=== PATIENT | female | born 1980 | race Caucasian/White ===

== ENCOUNTER → 2018-02-28 00:21 | Outpatient (CLI) | payer BC, SELFPAY ==
--- NOTE | 2018-02-28 09:18 | DI.REPORT_ITS ---
SYMPTOM/DIAGNOSIS: BILATERAL KIDNEY STONES, N20.0 RENAL ULTRASOUND: Comparison is 11/05/[address] scan 03/10/16 The left kidney measures 13.6 cm long. There is stable, persistent dilatation of the collecting system on the left. There do appear to be an echogenic foci in the left kidney consistent with nonobstructing stones. There is normal blood flow to the left kidney. The right kidney measures 12.5 cm long. There is again seen mild dilatation of the collecting system inferiorly. There are a few tiny echogenic foci consistent with nonobstructing stones. There is normal blood flow to the right kidney. No evidence of a solid renal mass is present. The pre-void urinary bladder volume is 120 cc. The bladder wall appeared smooth. Both ureteral jets were visualized. Post void urinary bladder volume is 15 cc. IMPRESSION: 1. Bilateral nephrolithiasis 2. Mild prominence of the collecting systems as described above. This is unchanged compared to prior examinations. If there is concern for obstruction a nuclear medicine renal evaluation may be considered.
== END ==
PROVIDERS: PCP Family Medicine; Visit Provider Urology
DX: N20.0 Calculus of kidney (principal); N28.89 Other specified disorders of kidney and ureter
CPT/HCPCS: 76770

== ENCOUNTER → 2018-03-06 08:33 | Outpatient (CLI) | payer BC, SELFPAY ==
[2018-03-06 10:04] LABS: Bilirubin Negative (Negative); Blood Moderate (Negative); Clarity Cloudy; Glucose Negative (Negative); Ketones Negative (Negative); Leukocyte Esterase Large (Negative); Nitrite Negative (Negative); Urobilinogen 0.2 EU/dL (Up TO 0.2); pH 5.5 (5-8)
[2018-03-06 10:19] LABS: RBC >50 (0-2); WBC >50 HPF (0-5)
[2018-03-06 10:20] LABS: C & S Indicated? Yes
== END ==
PROVIDERS: PCP Family Medicine; Visit Provider Urology
DX: N30.90 Cystitis, unspecified without hematuria (principal)
CPT/HCPCS: 81003; 81015; 87086

== ENCOUNTER 2018-03-28 15:57 | Outpatient (CLI) | payer BC, SELFPAY | END 2018-03-28 16:17 | PROVIDERS: PCP Family Medicine; Visit Provider Urology | DX: R30.0 Dysuria (principal) | CPT/HCPCS: 87077; 87086; 87186 ==

== ENCOUNTER 2018-04-11 16:17 | Outpatient (CLI) | payer BC, SELFPAY | END 2018-04-11 16:37 | PROVIDERS: PCP Family Medicine; Visit Provider Urology | DX: R30.0 Dysuria (principal); R39.15 Urgency of urination | CPT/HCPCS: 87086 ==

== ENCOUNTER 2018-08-25 00:39 | Outpatient (CLI) | payer BC, SELFPAY ==
--- NOTE | 2018-08-25 15:45 | DI.US_ITS ---
SYMPTOMS/DIAGNOSIS: F/U KIDNEY STONES, N20.0, BILATERAL FLANK PAIN X 1-2 WEEKS, RIGHT GREATER THAN LEFT RENAL ULTRASOUND: The prevoid bladder volume measures 444 cc. The ureteral jets were not seen. There was a large postvoid residual of 66 cc. No focal bladder mass or calcification is seen. The kidneys are normal in size and show normal parenchymal thickness. A 9 mm stone is seen at the upper pole of the right kidney. A 7 mm stone is seen at the upper pole of the left kidney. Other smaller stones are seen. There is no evidence of hydronephrosis. A cyst is seen at the lower pole of the left kidney. The uterus and ovaries are grossly normal. IMPRESSION: Bilateral nephrolithiasis. No evidence of hydronephrosis. Elevated postvoid residual bladder volume.
== END 2018-08-25 00:59 ==
PROVIDERS: PCP Family Medicine; Visit Provider Urology
DX: N20.0 Calculus of kidney (principal); R39.198 Other difficulties with micturition
CPT/HCPCS: 76770

== ENCOUNTER 2018-09-19 19:29 | Emergency (ER) | payer OTHER, SELFPAY ==
[2018-09-19 19:32] VITALS: BP 155/96; PULSE 82; RESP 16; TEMP 36.6; O2SAT 98
--- NOTE | 2018-09-19 20:36 | DI.RAD_ITS ---
SYMPTOM/DIAGNOSIS: BLUNT TRAUMA, PAIN LEFT FOOT: No fracture or dislocation is seen. A plantar calcaneal spur is noted. The joint spaces are well maintained. There are no bony erosions. IMPRESSION: Heel spur. No acute abnormality.
--- NOTE | 2018-09-19 20:48 | W.ED.GENAD ---
Discharge Plan Disposition Patient Disposition: HOME Condition: Stable Discharge Details Chief Complaint: Orthopedic Clinical Impression: Contusion of foot, left Primary Care Provider: Katelynn Michael ED Provider: Carlos Banuelos Home Meds and New Rx's Prescriptions: No Action epinephrine [EpiPen 2-Nomi] 0.3 MG/0.3 ML auto-injector 0.3 mg IM ONCE Qty: 2 RF: 0 fluticasone 16 GM spray,suspension 1 spray NS BID Qty: 3 RF: 3 Discharge Instructions Instructions: Foot Contusion (ED) Additional Instructions: Feel free to return to the emergency department for any new or worsening symptoms otherwise wear postoperative shoe or hard shoe insert over the next 2 weeks for comfort. If not improving over the next couple weeks please call orthopedic office for arrangement of follow-up for reassessment. You may continue to apply ice and take [id number] pain meds as needed for discomfort. Referrals: Chad Gr MD [ [facility] STAFF PHYSICIAN] - Juancarlos Andrews MD [ [facility] STAFF PHYSICIAN] - Jeferson Calles MD [ [facility] STAFF PHYSICIAN] - Medical Decision Making Patient presenting to the emergency department for injury to left foot. Patient states approximately 1 week ago she dropped a table onto her left foot. Patient has significant ecchymosis and small abrasion to her fourth metatarsal and lateral foot. Patient has no tenderness to base of fifth metatarsal, full range of motion of foot, and patient is weightbearing but she states that this has worsened over the past 24 hours. Patient has no other injury or trauma. Plan to do radiological imaging to rule out acute fracture. Review of radiological imaging shows no signs of acute fracture or dislocation .patient placed in postoperative shoe and encouraged to continue to use ice, ibuprofen, or acetaminophen as needed for discomfort and follow-up with orthopedist if not improving over the next 1-2 weeks. Return precautions discussed. After discussion of diagnosis and plan of care patient has no further needs, questions, or concerns and states clear understanding to return to the emergency department for any worsening symptoms. Lab Data Lab results reviewed: Yes I reviewed the patient's lab results. HPI General Mode of arrival: ambulatory. Date/Time Provider Initiated Documentation: 09/19/18 19:29. Limitations to Documentation: no limitations. Information obtained by: patient and RN notes reviewed. History of Present Illness 38 year old F presents to the emergency department with the chief complaint of left foot injury, described as moderate, with intensity rated at 6. Quality is described as aching, and is localized to the left and lower extremity. Patient started experiencing this week(s) (1) and it has been constant. Patient notes no other symptoms.. Related Data Home Medications Medication Instructions Recorded Confirmed epinephrine [Epipen 2-Nomi] 0.3 mg IM ONCE #2 syringe 10/11/17 09/19/18 fluticasone 1 spray NS BID #3 bottle 01/28/18 09/19/18 Previous Rx's Medication Instructions Recorded epinephrine [Epipen 2-Nomi] 0.3 mg IM ONCE #2 syringe 10/11/17 fluticasone 1 spray NS BID #3 bottle 01/28/18 Allergies Allergy/AdvReac Type Severity Reaction Status Date / Time No Known Drug Allergies Allergy Unverified 07/17/18 14:22 General Stated Complaint: Orthopedic JASBIR: 4 Review of Systems Cardiovascular Denies syncope Musculoskeletal Reports as per HPI, Denies numbness, Denies stiffness and Denies tingling Integumentary/Breasts Reports wounds Neurologic Denies syncope, Denies numbness and Denies tingling [facility] Medical History Acne (Chronic 09/17/16) Annual physical exam (Acute 01/28/18) Hypermobility syndrome (Chronic) Increased BMI (Chronic) 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 Brother Essential hypertension Brother No problems noted. Son No problems noted. Son No problems noted. Son No problems noted. Social History Smoking and Tabacco status: Never Exam Const General: cooperative, comfortable and no acute distress Orientation: alert, awake and oriented x3 Resp Effort & Inspection: normal respiratory effort and able to speak in complete sentences Cardio Rate: regular rate Rhythm: regular rhythm Extrem Left lower extremity: ankle Details: normal to inspection and normal ROM; no tenderness and foot Details: normal capillary refill, tenderness Location: of the mid foot (Fourth metatarsal dorsal aspect) Location: not over the Lisfranc joint; not of the base of the 5th metatarsal, toes with normal ROM, abrasion (Dorsal aspect corresponding to mid fourth metatarsal), ecchymosis (Dorsal lateral aspect of foot. No plantar ecchymosis), vascular exam Details: dorsalis pedis pulse present and normal capillary refill, tendon exam Details: active flexion normal and active extension normal and motor-sensory exam Details: two point discrimination normal and light-touch normal Course Vital Signs Temperature 36.6 C 09/19/18 19:32 Pulse 82 09/19/18 19:32 Respiratory Rate 16 09/19/18 19:32 Blood Pressure 155/96 H 09/19/18 19:32 Pulse Oximetry 98 09/19/18 19:32 Temperature 36.6 C 09/19/18 19:32 Temperature Source Skin 09/19/18 19:32 Pulse 82 09/19/18 19:32 Respiratory Rate 16 09/19/18 19:32 Respiratory Effort Non-Labored 09/19/18 19:36 Blood Pressure 155/96 H 09/19/18 19:32 Blood Pressure Position Sitting 09/19/18 19:32 Pulse Oximetry 98 09/19/18 19:32 Oxygen Delivery Method Room Air 09/19/18 19:32 Oxygen Flow Rate 0 09/19/18 19:32 Pain Level 6 09/19/18 20:19 Lab/Test Results Lab/Test Results: POC- Test(urine) Negative
--- NOTE | 2018-09-19 20:51 | ED.GENADUL_ITS ---
Discharge Plan Disposition Patient Disposition: HOME Condition: Stable Discharge Details Chief Complaint: Orthopedic Clinical Impression: Contusion of foot, left Primary Care Provider: Katelynn Michael ED Provider: Carlos Banuelos Home Meds and New Rx's Prescriptions: No Action epinephrine [EpiPen 2-Nomi] 0.3 MG/0.3 ML auto-injector 0.3 mg IM ONCE Qty: 2 RF: 0 fluticasone 16 GM spray,suspension 1 spray NS BID Qty: 3 RF: 3 Discharge Instructions Instructions: Foot Contusion (ED) Additional Instructions: Feel free to return to the emergency department for any new or worsening symptoms otherwise wear postoperative shoe or hard shoe insert over the next 2 weeks for comfort. If not improving over the next couple weeks please call orthopedic office for arrangement of follow-up for reassessment. You may continue to apply ice and take [id number] pain meds as needed for discomfort. Referrals: Chad Gr MD [ [facility] STAFF PHYSICIAN] - Juancarlos Andrews MD [ [facility] STAFF PHYSICIAN] - Jeferson Calles MD [ [facility] STAFF PHYSICIAN] - Medical Decision Making Patient presenting to the emergency department for injury to left foot. Patient states approximately 1 week ago she dropped a table onto her left foot. Patient has significant ecchymosis and small abrasion to her fourth metatarsal and lateral foot. Patient has no tenderness to base of fifth metatarsal, full range of motion of foot, and patient is weightbearing but she states that this has worsened over the past 24 hours. Patient has no other injury or trauma. Plan to do radiological imaging to rule out acute fracture. Review of radiological imaging shows no signs of acute fracture or dislocation .patient placed in postoperative shoe and encouraged to continue to use ice, ibuprofen, or acetaminophen as needed for discomfort and follow-up with orthopedist if not improving over the next 1-2 weeks. Return precautions discussed. After discussion of diagnosis and plan of care patient has no further needs, questions, or concerns and states clear understanding to return to the emergency department for any worsening symptoms. Lab Data Lab results reviewed: Yes I reviewed the patient's lab results. HPI General Mode of arrival: ambulatory . Date/Time Provider Initiated Documentation: 09/19/18 19:29 . Limitations to Documentation: no limitations . Information obtained by: patient and RN notes reviewed . History of Present Illness 38 year old F presents to the emergency department with the chief complaint of left foot injury, described as moderate, with intensity rated at 6. Quality is described as aching, and is localized to the left and lower extremity. Patient started experiencing this week(s) (1) and it has been constant. Patient notes no other symptoms.. Related Data Home Medications Medication Instructions Recorded Confirmed epinephrine [Epipen 2-Nomi] 0.3 mg IM ONCE #2 syringe 10/11/17 09/19/18 fluticasone 1 spray NS BID #3 bottle 01/28/18 09/19/18 Previous Rx's Medication Instructions Recorded epinephrine [Epipen 2-Nomi] 0.3 mg IM ONCE #2 syringe 10/11/17 fluticasone 1 spray NS BID #3 bottle 01/28/18 Allergies Allergy/AdvReac Type Severity Reaction Status Date / Time No Known Drug Allergies Allergy Unverified 07/17/18 14:22 General Stated Complaint: Orthopedic JASBIR: 4 Review of Systems Cardiovascular Denies syncope Musculoskeletal Reports as per HPI, Denies numbness, Denies stiffness and Denies tingling Integumentary/Breasts Reports wounds Neurologic Denies syncope, Denies numbness and Denies tingling [facility] Medical History Acne (Chronic 09/17/16) Annual physical exam (Acute 01/28/18) Hypermobility syndrome (Chronic) Increased BMI (Chronic) 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 Brother Essential hypertension Brother No problems noted. Son No problems noted. Son No problems noted. Son No problems noted. Social History Smoking and Tabacco status: Never Exam Const General: cooperative, comfortable and no acute distress Orientation: alert, awake and oriented x3 Resp Effort & Inspection: normal respiratory effort and able to speak in complete sentences Cardio Rate: regular rate Rhythm: regular rhythm Extrem Left lower extremity: ankle Details: normal to inspection and normal ROM; no tenderness and foot Details: normal capillary refill, tenderness Location: of the mid foot (Fourth metatarsal dorsal aspect) Location: not over the Lisfranc joint; not of the base of the 5th metatarsal, toes with normal ROM, abrasion (Dorsal aspect corresponding to mid fourth metatarsal), ecchymosis (Dorsal lateral aspect of foot. No plantar ecchymosis), vascular exam Details: dorsalis pedis pulse present and normal capillary refill, tendon exam Details: active flexion normal and active extension normal and motor-sensory exam Details: two point discrimination normal and light-touch normal Course Vital Signs Temperature 36.6 C 09/19/18 19:32 Pulse 82 09/19/18 19:32 Respiratory Rate 16 09/19/18 19:32 Blood Pressure 155/96 H 09/19/18 19:32 Pulse Oximetry 98 09/19/18 19:32 Temperature 36.6 C 09/19/18 19:32 Temperature Source Skin 09/19/18 19:32 Pulse 82 09/19/18 19:32 Respiratory Rate 16 09/19/18 19:32 Respiratory Effort Non-Labored 09/19/18 19:36 Blood Pressure 155/96 H 09/19/18 19:32 Blood Pressure Position Sitting 09/19/18 19:32 Pulse Oximetry 98 09/19/18 19:32 Oxygen Delivery Method Room Air 09/19/18 19:32 Oxygen Flow Rate 0 09/19/18 19:32 Pain Level 6 09/19/18 20:19 Lab/Test Results Lab/Test Results: POC- Test(urine) Negative
--- NOTE | 2018-09-19 21:20 | DI.VRAD_ITS ---
EXAM: XR Left Foot Complete, 3 or more Views EXAM DATE/TIME: 09/19/2018 7:43 PM CLINICAL HISTORY: 38 years old, female; Injury or trauma; Injury history: Table fell onto foot; Work related; Initial encounter; Blunt trauma; Left TECHNIQUE: XR Left foot 3 or more views. COMPARISON: No relevant prior studies available. FINDINGS: Bones/joints: Mild plantar calcaneal spurring. Soft tissues: Grossly unremarkable. IMPRESSION: No fractures or dislocations. Mild plantar calcaneal spurring. Dictated and Authenticated by: Robin Obando MD. Ordering:ESTEFANY Gonzalez MD
[2018-09-19 21:58] VITALS: BP 142/80
== END 2018-09-19 21:30 | disposition home or self-care (01) ==
PROVIDERS: Emergency Provider Nurse Practitioner Family; PCP Family Medicine
DX: S90.32XA Contusion of left foot, initial encounter (principal); W20.8XXA Other cause of strike by thrown, projected or falling object, initial encounter
CPT/HCPCS: 99283; 73630

== ENCOUNTER 2018-09-23 11:13 | Outpatient (CLI) | payer BC, SELFPAY ==
[2018-09-23 12:44] LABS: Abs Immature Grans 0.02 k/cumm (0.0-0.09); Absolute Basophil Count 0.02 k/cumm (0.0-0.2); Absolute Eosinophil Count 0.17 k/cumm (0.0-0.7); Absolute Lymphocyte Count 1.32 k/cumm (1.2-3.4); Absolute Monocyte Count 0.79 k/cumm (0.11-0.7); Absolute Neutrophil Count 6.78 k/cumm (1.2-6.7); Basophils % 0.2; Eosinophils % 1.9; HCT 39.9 % (36.0-46.0); HGB 13.5 g/dL (12.0-15.5); Immature Grans % 0.2; Lymphocytes % 14.5; Mean Corp. HGB Concentration 33.8 g/dL (32.0-36.0); Mean Corpuscular Hemoglobin 28.5 pg (27.0-33.0); Mean Corpuscular Volume 84.2 fL (80-95); Mean Platelet Volume 10.4 fL (8.0-11.0); Monocytes % 8.7; Neutrophils % 74.5; Platelet Count 185 x1000/uL (130-400); RBC 4.74 m/cumm (4.00-5.20); RBC Distribution Width 13.6 % (11.7-14.6)
[2018-09-23 13:28] LABS: ALT 20 U/L (12-78); AST 10 U/L (15-37); Albumin 3.9 g/dL (3.4-5.0); Alkaline Phosphatase 81 U/L (46-116); Anion Gap 7.7 mmol/L (3-11); BUN 18 mg/dL (7-18); Bilirubin, Total 1.1 mg/dL (0.2-1.0); CO2 29.3 mmol/L (21.0-32.0); CREATININE 0.74 mg/dL (0.55-1.02); Calcium 9.3 mg/dL (8.5-10.1); Chloride 103 mmol/L (98-107); Cholesterol 161 mg/dL (50-200); Glucose 117 mg/dL (70-100); HDL Cholesterol 43 mg/dL (40-60); LDL CHOLESTEROL 100 mg/dL (<100); Potassium 4.1 mmol/L (3.5-5.1); Sodium 140 mmol/L (136-145); TSH (W/Ref FT4) 1.06 uIU/mL (0.358-3.74); Total Protein 6.9 g/dL (6.4-8.2); Triglyceride 168 mg/dL (30-150)
[2018-09-23 14:05] LABS: Hemoglobin A1C 5.6 % (4.5-6.2)
== END 2018-09-23 11:33 ==
PROVIDERS: PCP Family Medicine; Visit Provider Family Medicine
DX: R03.0 Elevated blood-pressure reading, without diagnosis of hypertension (principal); E28.2 Polycystic ovarian syndrome
CPT/HCPCS: 36415; 80053; 80061; 83721; 83036; 84443; 85025

== ENCOUNTER 2018-10-27 00:33 | Outpatient (CLI) | payer BC, SELFPAY ==
[2018-10-27 08:04] LABS: HCG Qual (Urine) Negative
--- NOTE | 2018-10-27 09:37 | DI.CT_ITS ---
SYMPTOM/DIAGNOSIS: KIDNEY STONES, CALCULUS OF KIDNEY, N20.[address]: CT scan of the abdomen and pelvis was performed without intravenous or oral contrast material. Comparison examination is 03/10/16. The lung bases are clear. The lack of IV contrast does limit evaluation of the abdominal and pelvic organs. The unenhanced liver is unremarkable. The patient is status post cholecystectomy. No biliary ductal dilatation is present. The unenhanced spleen, pancreas and adrenal glands are unremarkable. There are several non obstructing stones seen within the right kidney. The largest is seen in the mid pole and measures 0.5 cm. in diameter. No ureterolithiasis or hydronephrosis is identified. There is numerous non obstructing stones seen within the left kidney. The largest measures .5 cm. and is located in the upper pole. No ureterolithiasis or hydronephrosis is identified. The urinary bladder is intact. The reproductive organs are unremarkable. The bowel abdominal aorta is of normal caliber. No significant abdominal or pelvic adenopathy, ascites or pneumoperitoneum is present. The bowel shows no evidence of obstruction or inflammation. No evidence of an acute appendicitis is present. Degenerative changes are seen of the lumbar spine, particularly at the L 5-S 1 disc space. IMPRESSION: Bilateral nephrolithiasis. No evidence of ureterolithiasis or obstructive uropathy.
== END 2018-10-27 00:53 ==
PROVIDERS: PCP Family Medicine; Visit Provider Urology
DX: N20.0 Calculus of kidney (principal)
CPT/HCPCS: 74176; 81025

== ENCOUNTER 2018-10-27 06:36 | Outpatient (CLI) | payer BC, SELFPAY ==
--- NOTE | 2018-10-27 08:30 | ETT_ITS ---
*[facility]* *[facility]* [address] [place] [address] Stress Electrocardiography Maikol protocol Date of study: 10/27/2018 *PATIENT PRESENTATION* Height: 180.3cm (71in) Blood Pressure: Weight: 99.5kg (219lb) BSA: 2.26m^2 Referring physician: Katelynn Michael Ordering physician: Katelynn Michael Impressions: - Normal study after maximal exercise. - Pt with typical CP with exertion. If clinical suspicion persists, consider perfusion imaging. Summary: 1. Stress ECG conclusions: The stress ECG is negative. 2. Stress: The target heart rate was achieved. Indication: R07.9. History: REASON FOR TESTING: CHEST PAIN UNRELIEVED BY ANTACIDS, THAT RADIATED TO MID UPPER BACK AND BOTH ARMS INTERMITTANTLY. ASSOCIATED SHORTNESS OF BREATH AT TIMES. PMH: ELEVATED BLOOD PRESSURE, PCOS, HYPERMOBILITY SYNDROME( NOT MARFANS), LOW BACK PAIN, KIDNEY STONES, HIVES, VIT. D DEFICIENCY. SYSTEMIC ALLERGIC REACTION TO UNKNOWN IRRITANT. FAMILY HX: FATHER-CVA, DIABETES. MOTHER [place] IN EARLY 50'S,CAD. BROTHER-ESSENTIAL HYPERTENSION. SMOKING: NEVER. EXCERCISE: NO REGULAR EXCERCISE. Risk factors: Family history of coronary artery disease. Hypertension. Obesity. Cholesterol: 161mg/dl. HDL: 43mg/dl. LDL: 100mg/dl. Triglycerides: 168mg/dl. ALLERGIES: NKDA MEDICATIONS: HYDROCHLOROTHIAZIDE 12.5 MG DAILY, FLUTICASONE PROPIONATE 50 MCG/ACTUATION 1 SPRAY NS BID NEEDED, EPIPEN NEEDED. Protocol: Maikol protocol. Baseline ECG: NO PREVIOUS EKG FOR COMPARISON. TODAY'S EKG- SINUS RHYTHM. HR 73 BPM. Stress protocol: + +---+ + !Stage !HR !BP (mmHg) ! + +---+ + !Baseline supine !73 !130/90 (103)! + +---+ + !Baseline standing !80 !132/88 (103)! + +---+ + !Stage I; 1.7mph, 10degrees; 3 min !128!160/92 (115)! + +---+ + !Stage II; 2.5mph, 12degrees; 3 min !150!172/90 (117)! + +---+ + !Stage III; 3.4mph, 14degrees; 3 min!171!190/92 (125)! + +---+ + !Recovery; 1 min !152!200/92 (128)! + +---+ + !Recovery; 3 min !111!190/88 (122)! + +---+ + !Recovery; 6 min !103!136/80 (99) ! + +---+ + !Recovery; 9 min !98 !130/80 (97) ! + +---+ + * Stress results: The target heart rate was achieved. The rate-pressure product for the peak heart rate and blood pressure was 90809cu Hg/min. Stress ECG: TREADMILL PORTION OF STRESS TEST ENDED IN 9 MINS, 48 SECS. HEART RATE AND BLOOD PRESSURE RESPONSE TO EXERCISE-HYPERTENSIVE BLOOD PRESSURE RESPONSE. MAX HR = 182 % OF TARGET-100 ECTOPY-RARE PVC APPROXIMATE METS ACHIEVED -11.46 ANGINA- 3/10 CHEST TIGHTNESS REPORTED IN STAGE 3, DECREASED TO 2/10 IN THE FIRST MINUTE OF RECOVER, AND 0/10 AT 5;[address] SEGMENT CHANGES- NO ISCHEMIC CHNAGES NOTED. AVERAGE FUNCTIONAL CAPACITY FOR EXERCISE. The stress ECG is negative. Dietrich treadmill score: 6. This score predicts a low risk of cardiac events. Study data: Janes Darnell MD supervised and was readily available during the procedure. This study was interpreted by [facility]. Study status: Routine. Consent: The risks, benefits, and alternatives to the procedure were explained to the patient and informed consent was obtained. Procedure: Initial setup. A baseline ECG was recorded. Surface ECG leads and manual cuff blood pressure measurements were monitored. Heart sounds: Normal. Lung sounds: Normal. Treadmill exercise testing was performed using the Maikol protocol. Study completion: The patient tolerated the procedure well and was discharged from the lab. Discharge: The patient left the laboratory in stable condition. Birthdate: Patient birthdate: 1980. Sex: Gender: female. Study date: Study date: 10/27/2018. Study time: 00:01 AM. Electronically signed by Janes Darnell MD 10/27/2018 11:07
--- NOTE | 2018-10-27 10:25 | MERGE_ITS ---
*[facility]* *[facility]* [address] [place] [address] Date of study: 10/27/2018 Transthoracic Echocardiography M-mode, complete 2D, complete spectral Doppler, and color Doppler *STUDY CONCLUSIONS* Summary: 1. Left ventricle: The cavity size was normal. Systolic function was normal. The estimated ejection fraction was 60-65%. 2. Mitral valve: There was mild regurgitation. 3. Right ventricle: The cavity size was normal. Wall thickness was normal. Systolic function was normal. 4. Atrial septum: No defect or patent foramen ovale was identified. 5. Pulmonary arteries: Pulmonary systolic pressure was in the range of 10mm Hg to 20mm Hg. 6. Inferior vena cava: The vessel was patent and normal in size. The respirophasic diameter changes were in the normal range (greater than or equal to 50%), consistent with normal central venous pressure. *PATIENT PRESENTATION* Height: 180.3cm ((71in) ) S/D Pressure: 127 / 84 Weight: 99.3kg ((218.5lb) ) BSA: 2.26m^2 Test start time: 10:20 AM. Test stop time: 11:10 AM. 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 This study was interpreted by [facility]. Pertinent images and digital data are archived for permanent storage and are available for subsequent review. No prior study was available for comparison. Study status: Routine. Transthoracic echocardiography. M-mode, complete 2D, complete spectral Doppler, and color Doppler. A Transthoracic Echocardiogram was performed. Scanning was performed from the parasternal, apical, subcostal, and suprasternal notch acoustic windows. Images were obtained using an [id number] cardiac ultrasound machine. Study completion: The patient tolerated the procedure well. History: PMH: HTN, SOB CP r07.9, R06.02. *CARDIAC ANATOMY* Left ventricle: The cavity size was normal. Systolic function was normal. The estimated ejection fraction was 60-65%. The tissue Doppler parameters were normal. Diastolic parameters were normal. There was no evidence of elevated ventricular filling pressure by Doppler parameters. Aortic valve: Trileaflet. Doppler: There was no stenosis. There was no regurgitation. VTI ratio of LVOT to aortic valve: 0.79. Valve area (VTI): 2.5cm^2. Indexed valve area (VTI): 1.1cm^2/m^2. Peak velocity ratio of LVOT to aortic valve: 0.69. Valve area (Vmax): 2.1cm^2. Indexed valve area (Vmax): 0.9cm^2/m^2. Mean velocity ratio of LVOT to aortic valve: 0.62. Valve area (Vmean): 1.9cm^2. Indexed valve area (Vmean): 0.9cm^2/m^2. Mean gradient (S): 4.8mm Hg. Peak gradient (S): 9.1mm Hg. Aorta: Aortic root: The aortic root was normal in size. Ascending aorta: The ascending aorta was normal in size. Mitral valve: Doppler: There was no evidence for stenosis. There was mild regurgitation. Valve area by pressure half-time: 3.7cm^2. Indexed valve area by pressure half-time: 1.6cm^2/m^2. Left atrium: The atrium was normal in size. Atrial septum: No defect or patent foramen ovale was identified. Right ventricle: The cavity size was normal. Wall thickness was normal. Systolic function was normal. Pulmonic valve: Doppler: There was no evidence for stenosis. There was mild regurgitation. Peak gradient (S): 5.2mm Hg. Tricuspid valve: Doppler: There was mild regurgitation. Pulmonary artery: Poorly visualized. Pulmonary systolic pressure was in the range of 10mm Hg to 20mm Hg. Right atrium: The atrium was normal in size. Pericardium: There was no pericardial effusion. Systemic veins: Inferior vena cava: Well visualized. The vessel was patent and normal in size. The respirophasic diameter changes were in the normal range (greater than or equal to 50%), consistent with normal central venous pressure. Baseline ECG: Normal sinus rhythm. Measurements Left ventricle Value Reference LV ID, ED, PLAX 5.3 cm 3.5 - 6.0 LV ID, ES, PLAX 3.5 cm 2.1 - 4.0 LV PW thickness, ED, PLAX 1.0 cm LV end-diastolic volume, 1-p A2C 110 ml LV ejection fraction, 1-p A2C 63 % LV end-diastolic volume, 1-p A4C 92 ml LV ejection fraction, 1-p A4C 58 % LV e', lateral 0.126 m/sec LV E/e', lateral 5 LV e', medial 0.074 m/sec LV E/e', medial 9 LV e', average 0.1 m/sec LV E/e', average 6 Ventricular septum Value Reference IVS thickness, ED, PLAX 1.1 cm LVOT Value Reference LVOT ID, A-P 2.0 cm LVOT area 3.1 cm^2 LVOT peak velocity, S 1.03 m/sec LVOT mean velocity, S 0.65 m/sec LVOT VTI, S 22.0 cm LVOT peak gradient, S 4.3 mm Hg LVOT mean gradient, S 2 mm Hg Stroke volume (SV), LVOT DP 69 ml Stroke index (SV/bsa), LVOT DP 30 ml/m^2 Aortic valve Value Reference Aortic valve peak velocity, S 1.5 m/sec Aortic valve mean velocity, S 1.05 m/sec Aortic valve VTI, S 28.0 cm Aortic mean gradient, S 4.8 mm Hg Aortic peak gradient, S 9.1 mm Hg VTI ratio, LVOT/AV 0.79 Aortic valve area, VTI 2.5 cm^2 Velocity ratio, peak, LVOT/AV 0.69 Aortic valve area, peak velocity 2.1 cm^2 Velocity ratio, mean, LVOT/AV 0.62 Aortic valve area, mean velocity 1.9 cm^2 Aortic valve area/bsa, mean velocity 0.9 cm^2/m^2 Aorta Value Reference Aortic root ID, ED 3.1 cm Ascending aorta ID, A-P, S 3.1 cm Left atrium Value Reference LA ID, A-P, ES 3.7 cm LA ID/bsa, A-P 1.6 cm/m^2 <=2.2 LA area, ES, A4C 16.4 cm^2 8.8 - 23.4 LA area, ES, A2C 17 cm^2 LA volume/bsa, ES, 1-p A4C 21 ml/m^2 LA volume, ES, 2-p 46 ml LA volume/bsa, ES, 2-p 20 ml/m^2 LA/aortic root ratio 1.21 Mitral valve Value Reference Mitral E-wave peak velocity 0.65 m/sec Mitral A-wave peak velocity 0.47 m/sec Mitral deceleration time 206 ms 150 - 230 Mitral pressure half-time 60 ms Mitral E/A ratio, peak 1.38 Mitral valve area, PHT, DP 3.7 cm^2 Tricuspid valve Value Reference Tricuspid regurg peak velocity 1.9 m/sec Tricuspid peak RV-RA gradient 14.4 mm Hg Right atrium Value Reference RA area, ES, A4C 12.5 cm^2 8.3 - 19.5 Pulmonic valve Value Reference Pulmonic peak gradient, S 5.2 mm Hg Legend: (L) and (H) barbara values outside specified reference range. I have personally reviewed the images and have reviewed and edited the reported findings. Electronically signed by Janes Darnell MD 10/27/2018 16:46
== END 2018-10-27 06:56 ==
PROVIDERS: PCP Family Medicine; Visit Provider Family Medicine
DX: R07.9 Chest pain, unspecified (principal); R06.02 Shortness of breath; I10 Essential (primary) hypertension; I34.0 Nonrheumatic mitral (valve) insufficiency; Z82.49 Family history of ischemic heart disease and other diseases of the circulatory system
CPT/HCPCS: 93017; 93306

== ENCOUNTER 2019-05-26 01:26 | Outpatient (CLI) | payer BC, SELFPAY ==
--- NOTE | 2019-05-26 14:43 | DI.US_ITS ---
EXAM: US RENAL CLINICAL HISTORY: monitor known stones, N20.0 CALCULUS OF KIDNEY TECHNIQUE: Ultrasound performed using standard protocol. COMPARISON: CT ABDOMEN AND PELVIS WO from 10/27/2018 FINDINGS: The right kidney measures 12.5 cm in length. A 5 millimeter stone is seen in the mid right kidney. A 6 millimeter stone is seen near the lower pole of the right kidney. A 6 millimeter stone is seen near the lower pole of the left kidney. There is a question of mild bilateral hydronephrosis. It cou ld be related. IMPRESSION: Bilateral renal calculi. Mild hydronephrosis could be related to .
== END 2019-05-26 01:46 ==
PROVIDERS: PCP Family Medicine; Visit Provider Urology
DX: N20.0 Calculus of kidney (principal); N13.30 Unspecified hydronephrosis
CPT/HCPCS: 76770

== ENCOUNTER 2019-11-13 02:06 | Outpatient (CLI) | payer BC, SELFPAY ==
[2019-11-13 09:29] LABS: Hemoglobin A1C 5.6 % (3.8-5.6)
[2019-11-13 10:16] LABS: ALT 35 U/L (14-59); AST 14 U/L (15-37); Albumin 3.9 g/dL (3.4-5.0); Alkaline Phosphatase 72 U/L (46-116); Anion Gap 8.9 mmol/L (3-11); BUN 21 mg/dL (7-18); Bilirubin, Total 1.1 mg/dL (0.2-1.0); CO2 25.1 mmol/L (21.0-32.0); CREATININE 0.83 mg/dL (0.55-1.02); Calcium 9.2 mg/dL (8.5-10.1); Chloride 103 mmol/L (98-107); Glucose 91 mg/dL (74-106); Magnesium 1.7 mg/dL (1.8-2.4); Potassium 4.1 mmol/L (3.5-5.1); Sodium 137 mmol/L (136-145); Total Protein 7.2 g/dL (6.4-8.2)
== END 2019-11-13 02:26 ==
PROVIDERS: PCP Family Medicine; Visit Provider Family Medicine
DX: E11.9 Type 2 diabetes mellitus without complications (principal); R53.83 Other fatigue
CPT/HCPCS: 36415; 80053; 83036; 83735

== ENCOUNTER 2019-12-11 02:20 | Outpatient (CLI) | payer BC, SELFPAY ==
--- NOTE | 2019-12-11 06:30 | DI.US_ITS ---
EXAM: US RENAL CLINICAL HISTORY: monitor known stones, alex kidney stones, N20.0. TECHNIQUE: Calderón scale, color and spectral Doppler were used. COMPARISON: US US RENAL from 05/26/2019 FINDINGS: Renal size in cm: Right: 13.3 left: 13.9 Echogenicity: Normal. Hydronephrosis: No. Cyst or mass: No. Nephrolithiasis: Multiple bilateral echogenic foci are seen in the kidneys. The largest on the right measures 4 mm and is located in the midpole. The largest on the left measures 8 mm and is located i n the midpole. Other findings: None. Bladder:Normal. Ureteral jets: Right: Visualized and unremarkable. Left: Visualized and unremarkable. Prevoid vol:216 cc Postvoid vol:0 cc DOPPLER FINDINGS: Normal and symmetric blood flow to the kidneys. IMPRESSION: Bilateral nephrolithiasis. No evidence of hydronephrosis. DATA REPOSITORY:
== END 2019-12-11 02:40 ==
PROVIDERS: PCP Family Medicine; Visit Provider Urology
DX: N20.0 Calculus of kidney (principal)
CPT/HCPCS: 76770

== ENCOUNTER 2020-01-26 02:30 | Outpatient (CLI) | payer BC, SELFPAY ==
[2020-01-26 08:57] LABS: Abs Immature Grans 0.02 k/cumm (0.0-0.09); Absolute Basophil Count 0.02 k/cumm (0.0-0.2); Absolute Eosinophil Count 0.26 k/cumm (0.0-0.7); Absolute Lymphocyte Count 1.74 k/cumm (1.2-3.4); Absolute Monocyte Count 0.47 k/cumm (0.11-0.7); Basophils % 0.3; Eosinophils % 3.7; HCT 40.2 % (36.0-46.0); HGB 13.9 g/dL (12.0-15.5); Immature Grans % 0.3 %; Lymphocytes % 24.5; Mean Corp. HGB Concentration 34.6 g/dL (32.0-36.0); Mean Corpuscular Hemoglobin 29.3 pg (27.0-33.0); Mean Corpuscular Volume 84.6 fL (80-95); Mean Platelet Volume 10.2 fL (8.0-11.0); Monocytes % 6.6; Neutrophils % 64.6; Platelet Count 179 x1000/uL (130-400); RBC 4.75 m/cumm (4.00-5.20); RBC Distribution Width 13.2 % (11.7-14.6); White Blood Cell Count 7.11 k/cumm (4.4-10.8)
[2020-01-26 09:06] LABS: Hemoglobin A1C 5.3 % (3.8-5.6)
[2020-01-26 10:15] LABS: ALT 27 U/L (14-59); AST 12 U/L (15-37); Alkaline Phosphatase 73 U/L (46-116); Anion Gap 14.9 mmol/L (3-11); BUN 19 mg/dL (7-18); CO2 23.1 mmol/L (21.0-32.0); CREATININE 1.04 mg/dL (0.55-1.02); Calcium 9.3 mg/dL (8.5-10.1); Chloride 102 mmol/L (98-107); Estimated GFR 58.69 (mL/min/1.73m2); Glucose 139 mg/dL (74-106); Potassium 3.8 mmol/L (3.5-5.1); Sodium 140 mmol/L (136-145); TSH (W/Ref FT4) 1.58 uIU/mL (0.36-3.74)
== END 2020-01-26 02:50 ==
PROVIDERS: PCP Family Medicine; Visit Provider Family Medicine
DX: E11.9 Type 2 diabetes mellitus without complications (principal); R53.83 Other fatigue
CPT/HCPCS: 36415; 80053; 83036; 84443; 85025

== ENCOUNTER 2020-05-19 07:25 | Outpatient (CLI) | payer BC, SELFPAY ==
[2020-05-24 00:10] LABS: Patient Race White; SARS-CoV-2 RNA Undetected (Undetected); SARS-CoV-2 Specimen Source Nasal
== END 2020-05-19 07:45 ==
PROVIDERS: PCP Family Medicine; Visit Provider Family Medicine
DX: Z20.828 Contact with and (suspected) exposure to other viral communicable diseases (principal)
CPT/HCPCS: U0003

== ENCOUNTER 2020-06-06 03:38 | Outpatient (CLI) | payer BC, SELFPAY ==
[2020-06-08 22:06] LABS: Patient Race White; SARS-CoV-2 RNA Undetected (Undetected); SARS-CoV-2 Specimen Source Nasal
== END 2020-06-06 03:58 ==
PROVIDERS: PCP Family Medicine; Visit Provider Family Medicine
DX: Z11.59 Encounter for screening for other viral diseases (principal)
CPT/HCPCS: U0003

== ENCOUNTER 2020-06-14 01:46 | Outpatient (CLI) | payer BC, SELFPAY ==
--- NOTE | 2020-06-14 06:30 | DI.US_ITS ---
APPROVED REPORT EXAM: Comprehensive 2D, Doppler, and color-flow Echocardiogram Patient Location: Out-Patient Ed Case Manager: Katia Noguera RDCS (AE) Indications: Marfanoid Habitus Other Information Study Quality: Adequate Conclusion Normal left ventricular wall thickness, chamber size, and systolic function. Estimated ejection frac tion is 60%. There are no segmental wall motion abnormalities Normal right ventricular size and systolic function Both atria are normal in size The aortic valve is structurally normal, trileaflet, without stenosis or regurgitation The mitral valve is structurally normal. There is no mitral valve prolapse. Trace mitral regurgitat ion The tricuspid valve is structurally normal with trace regurgitation. Normal estimated right ventricu lar systolic pressure The pulmonic valve is structurally normal with trace physiologic regurgitation Borderline dilated ascending aorta, 3.23 cm Wall motion Left Ventricle The left ventricle is normal size. The left ventricular systolic function is normal. The left ventric ular ejection fraction is within the normal range. There is normal left ventricular wall thickness. T here is normal LV segmental wall motion. There is no ventricular septal defect visualized. LVEF is 60 %. Right Ventricle The right ventricle is normal size. The right ventricular systolic function is normal. The RVSP is 26 .5 mmHg. Atria The left atrium size is normal. The right atrium size is normal. The interatrial septum is intact wit h no evidence for an atrial septal defect. Aortic Valve The aortic valve is normal in structure. Aortic valve is trileaflet. There is no aortic valvular sten osis. No aortic regurgitation is present. Mitral Valve The mitral valve is normal in structure. No evidence of mitral valve stenosis. Trace mitral regurgita tion. Tricuspid Valve The tricuspid valve is normal in structure. There is no tricuspid valve stenosis. Trace tricuspid reg urgitation. Pulmonic Valve The pulmonary valve is normal in structure. There is no pulmonic valvular stenosis. Trace pulmonic re gurgitation. Great Vessels The aortic root is normal in size. The ascending aorta is borderline Aortic arch is normal in caliber . IVC is normal in size and collapses >50% with inspiration. Pericardium There is no pericardial effusion. 2D Dimensions IVSD d PLAX 1.03 cm F: 0.6-1.0 LV Vol A2C d MOD 125.1 mL LVPW d PLAX 1.05 cm F: 0.6 - 1.0 LV Vol A4C d MOD 110.5 mL LVID d PLAX 5.14 cm F: 3.8 - 5.2 LA vol/ BSA A2C s A-L 23.7 mL/m2 LVDs 3.40 cm F: 2.2 - 3.5 LA vol/ BSA A4C s A-L 19.3 mL/m2 Ao Root d 2.90 cm F: 2.7 - 3.3 LA Vol/ BSA Biplane s A-L 21.6 mL/m2 RA Area A4C 14.74 cm2 LA Area A4C s MOD 16.47 cm2 RA Vol/ BSA A4C s A-L 16.4 mL/m2 LA Area A2C s MOD 18.42 cm2 Ao Asc Diam d 3.23 cm F: 2.3 - 3.1 LV EF A4C MOD 62.9 % LV EF Teichholz 62.2 % LV EF A2C MOD 60.1 % LVEF (Wolff's) 61.66 % F: 54 - 74 LV EF Biplane MOD 61.7 % LV Volume 85.75 mL F: 46 - 106 SV 73.88 mL LV Volume Index 36.96 mL/m2 F: 29 - 61 SV Index 31.86 mL/m2 LV Vol Biplane MOD 119.8 mL FS 33.65 % LV Diastology MV E' medial 0.083 (>0.07 m/s) E/A Ratio 1.2 LV E/e MED 10.30 (<14) MV E Vmax 0.86 (0.4-1.3 m/s) MV E' lateral 0.132 (>0.1 m/s) MV A Vmax 0.70 (0.4-1.3 m/s) LV E/e LAT 6.50 (<14) MV E/A Ratio 1.22 MV E/E' medial 10.33 MV E/E' lateral 6.50 Aortic Valve LVOT Area 3.72 cm2 AoV Area Vmax 2.88 cm2 LVOT Vmax 1.34 m/s AoV Area/ BSA (Vmax) 1.24 cm2/m2 LVOT Mean Ady. 0.84 m/s ADAM Mean Ady. 2.62 cm2 LVOT Peak Grad 7.2 mmHg ADAM Mean Ady. Index 1.13 cm2/m2 LVOT Mean Grad 3.4 mmHg LVOT VTI 0.253 m LVOT Diam s 2.15 cm AoV Vmax 1.73 m/s Velocity Ratio 0.77 AoV Mean Ady. 1.19 m/s AoV Peak Grad 12.0 mmHg LVOT SV 94.10 mL AoV Mean Grad 6.4 mmHg AoV VTI 0.317 m AoV Area VTI 2.97 cm2 AoV Area/ BSA (VTI) 1.28 cm/m2 Mitral Valve MV DT 276 (160-240 msec) MV PHT 80 msec MV Area PHT 2.75 cm2 MV VTI 0.240 m MV Area VTI 3.92 (4.0-6.0 cm2) Pulmonary Valve PV Vmax 1.52 (0.5-1.5 m/s) RVOT Peak Gr. 3.08 mmHg PV Peak Grad 9.3 mmHg RVOT Mean Gr. 1.45 mmHg PV Mean Grad 4.0 mmHg RVOT VTI 0.157 m PV VTI 0.267 m RVOT Vmax 0.88 m/s Tricuspid Valve TR Peak Grad 23.5 mmHg TR Vmax 2.42 m/s RA Pressure 3.00 mmHg RVSP (TR) 26.5 mmHg
== END 2020-06-14 02:06 ==
PROVIDERS: PCP Family Medicine; Visit Provider Family Medicine
DX: R29.91 Unspecified symptoms and signs involving the musculoskeletal system (principal)
CPT/HCPCS: 93306

== ENCOUNTER 2020-07-18 01:20 | Outpatient (CLI) | payer BC, SELFPAY ==
--- NOTE | 2020-07-18 07:45 | DI.US_ITS ---
EXAM: US RENAL CLINICAL HISTORY: Monitor known stones, alex kidney stones, N20.0 TECHNIQUE: Ultrasound of both kidneys performed using standard protocol. COMPARISON: US US ECHOCARDIOGRAM from 06/14/2020 FINDINGS: RIGHT KIDNEY: Measures 11.5 cm in length. No cysts evident. Normal cortical thickness and corticomedullary differen tiation .No solid masses Tiny hyperechoic foci noted which may be tiny calculi. No hydronephrosis. LEFT KIDNEY: Measures 12.8 cm in length. No cysts evident. Normal cortical thickness and corticomedullary differe ntiaion. No solids masses. Also few small hyperechoic foci Which are probably nonobstructive small calculi, similar to the opposite side. ABDOMINAL AORTA: No evidence of aneurysm. Urinary bladder: Prevoid volume 340 cc. Postvoid volume 73 cc Bladder wall thickness 3 millimeters. IMPRESSION: 1. There are multiple hyperechoic foci in both kidneys which may be small nonobstructive calculi. T here is no hydronephrosis on either side. No perinephric fluid. 2. There is postvoid volume 73 cc in the urinary bladder. 3. There is no evidence of obvious bladder wall mass on these images. DATA REPOSITORY:
== END 2020-07-18 01:40 ==
PROVIDERS: PCP Family Medicine; Visit Provider Urology
DX: N20.0 Calculus of kidney (principal)
CPT/HCPCS: 76770

== ENCOUNTER 2020-07-18 03:04 | Outpatient (CLI) | payer BC, SELFPAY ==
[2020-07-18 09:23] LABS: CREATININE 0.96 mg/dL (0.55-1.02)
== END 2020-07-18 03:24 ==
PROVIDERS: PCP Family Medicine; Visit Provider Internal Medicine Cardiovascular Disease
DX: Z15.89 Genetic susceptibility to other disease (principal)
CPT/HCPCS: 36415; 82565

== ENCOUNTER 2020-08-01 11:29 | Outpatient (CLI) | payer BC, SELFPAY ==
[2020-08-02 21:46] LABS: COVID-19 RT-PCR Result NEGATIVE (Negative)
== END 2020-08-01 11:49 ==
PROVIDERS: PCP Family Medicine; Visit Provider Family Medicine
DX: J02.9 Acute pharyngitis, unspecified (principal)
CPT/HCPCS: U0003

== ENCOUNTER 2020-09-08 02:53 | Outpatient (CLI) | payer BC, SELFPAY ==
[2020-09-08 09:00] LABS: Calculated LDL 103 mg/dL (<100); Cholesterol 163 mg/dL (<200); HDL Cholesterol 37 mg/dL (40-60); Triglyceride 117 mg/dL (<150)
== END 2020-09-08 02:54 | disposition home or self-care (01) ==
LOC: LBO 02:53
PROVIDERS: PCP Family Medicine; Visit Provider Family Medicine
DX: Z00.00 Encounter for general adult medical examination without abnormal findings (principal); E11.9 Type 2 diabetes mellitus without complications; E28.2 Polycystic ovarian syndrome
CPT/HCPCS: 36415; 80061; 83036

== ENCOUNTER 2021-01-17 12:18 | Outpatient (REF) | payer BC, SELFPAY ==
[2021-01-17 15:07] LABS: Bilirubin Negative (Negative); Blood Small (Negative); Clarity Sl Cloudy (Clear); Glucose Negative (Negative); Ketones Negative (Negative); Leukocyte Esterase Trace (Negative); Nitrite Negative (Negative); Specific Gravity 1.025 (1.005-1.025); Urobilinogen 0.2 EU/dL (Up TO 0.2)
[2021-01-17 15:15] LABS: Bacteria Few HPF (Negative); C & S Indicated? Yes; Casts Negative LPF (Negative); Crystals Negative HPF (Negative); Epithelial Cells Negative HPF (Negative); Mucus Negative (Negative); WBC >50 HPF (0-5)
== END 2021-01-17 12:19 | disposition home or self-care (01) ==
LOC: LBN 12:18
PROVIDERS: PCP Family Medicine; Visit Provider Urology
DX: R30.0 Dysuria (principal)
CPT/HCPCS: 81003; 81015; 87086

== ENCOUNTER 2021-06-29 02:39 | Outpatient (CLI) | payer BC, SELFPAY ==
[2021-06-29 17:27] LABS: Hemoglobin A1C 6.2 % (<5.7)
[2021-06-29 17:42] LABS: HCG Quant, Pregnancy < 1 mIU/mL (1-3)
== END 2021-06-29 02:40 | disposition home or self-care (01) ==
LOC: LBO 02:39
PROVIDERS: PCP Family Medicine; Visit Provider Obstetrics & Gynecology
DX: R63.8 Other symptoms and signs concerning food and fluid intake (principal); N91.2 Amenorrhea, unspecified
CPT/HCPCS: 36415; 83036; 84443; 84702

== ENCOUNTER 2021-07-02 09:13 | Emergency (ER) | payer BC, SELFPAY ==
[2021-07-02 09:21] VITALS: BP 166/89; PULSE 89; RESP 16; TEMP 36.7; O2SAT 95
[2021-07-02 09:30] LABS: Bilirubin Negative (Negative); Blood Negative (Negative); Clarity Clear (Clear); Glucose Negative (Negative); Ketones Negative (Negative); Leukocyte Esterase Negative (Negative); Nitrite Negative (Negative); Specific Gravity 1.025 (1.005-1.025); Urobilinogen 0.2 EU/dL (Up TO 0.2); pH 6.5 (5-8)
--- NOTE | 2021-07-02 09:30 | DI.CT_ITS ---
Exam(s) CT ABDOMEN PELVIS W EXAM: CT ABDOMEN PELVIS W CLINICAL HISTORY: right sided back and abdominal pain TECHNIQUE: Imaging Protocol: Axial computed tomography images with coronal and sagittal reformatted images were created and reviewed CONTRAST MATERIAL: Intravenous: Omnipaque 350 Contrast volume:100 mL Oral: No COMPARISON: CT CT ABDOMEN PELVIS WO from 10/27/2018 FINDINGS: ABDOMEN: Lung Bases: Normal where visualized. Liver: There is diffuse fatty infiltration of the liver. The liver measures 21.4 cm long. No measur able mass. Portal, Superior Mesenteric, and Splenic Veins: Unremarkable. Gallbladder and Biliary Tract: Status post cholecystectomy. No biliary ductal dilatation. Pancreas: Normal density, no abnormal calcifications or inflammatory process. Spleen: The spleen measures 13 cm long. Adrenals: No masses seen. Kidneys: Normal size, contour and axis. Bilateral nephrolithiasis. No hydronephrosis. No masses see n. Abdominal Aorta: Abdominal portion non-dilated. Atherosclerosis. Bowel: No obstruction or bowel wall thickening. No evidence of appendicitis. There is a moderate torito unt of stool in the colon. Peritoneal Cavity: No ascites, collection or mesenteric inflammatory response. No free air. Lymph Nodes: Within normal limits. Bones: Within normal limits for the patient's age. Soft Tissues: Unremarkable. PELVIS: Bladder: Symmetric distention, no gross wall thickening. Reproductive Organs: Unremarkable as visualized. Lymph Nodes: Within normal limits. Bones: Within normal limits for the patient's age. IMPRESSION: 1. Bilateral nephrolithiasis. No hydronephrosis. 2. Hepatosplenomegaly and hepatic steatosis. 3. Moderate amount of stool in the colon. RADIATION DOSE DELIVERED: 1,347.57mGy.cm Total DLP DATA REPOSITORY: All CT scans at this facility are submitted to the National Radiology Data Registry (NRDR) Dose Index Registry (DIR) with the [employer] ([employer]). RADIATION OPTIMIZATION: All CT scans at this facility use at least one of these dose optimization te chniques: automated exposure control; mA and/or kV adjustment per patient size (includes targeted exa ms where dose is matched to clinical indication); or iterative reconstruction.
--- NOTE | 2021-07-02 09:36 | ED.GENADUL_ITS ---
Discharge Plan Disposition Patient Disposition: HOME Condition: Stable Discharge Details Clinical Impression: Abdominal pain, Back pain Primary Care Provider: Katelynn Michael ED Provider: Janes Chun Home Meds and New Rx's Prescriptions: New cyclobenzaprine 10 mg tablet 10 mg PO TID PRNQty: 20 RF: 0 Continued cholecalciferol (vitamin D3) 125 mcg (5,000 unit) capsule 250 mcg PO DAILY RF: 0 duloxetine 30 mg capsule,delayed release(DR/EC) 30 mg PO DAILY Qty: 30 RF: 5 metoprolol succinate 50 mg tablet extended release 24 hr 50 mg PO DAILY Qty: 90 RF: 4 potassium chloride 20 mEq tablet extended release 20 meq PO DAILY Qty: 90 RF: 5 fluticasone propionate 50 mcg/actuation spray,suspension 1 spray NS BID PRN (Reason: allergy symptoms) Qty: 47.4 RF: 4 hydrochlorothiazide 25 mg tablet 25 mg PO QAM Qty: 90 RF: 4 omeprazole 20 mg capsule,delayed release(DR/EC) 20 mg PO DAILY Qty: 90 RF: 5 loratadine 10 mg tablet 10 mg PO DAILY PRN (Reason: allergy symptoms) Qty: 90 RF: 4 Discharge Instructions Additional Instructions: your blood work and urine did not show concerning findings at the present time you cat scan showed nonobstructing kidney stones and mild enlargement of the liver follow up with your primary care provider within 1 week you can take 1000mg tylenol and 600mg ibuprofen every 6 hours as needed if you feel more ill, have fevers or new pain such as chest pain return to the emergency department Medical Decision Making 41 yo female with hx of htn, dm, prior kidney stones, comes in with right sided mid back pain for 2 weeks that is constant and radiates to the right upper abdomen. Denies fevers, chills, dysruia, chest pain or dyspnea. She has not taken anything for the pain. She localizes the pain to the right cva area, no back pain and no saddle anesthesia. Does have tenderness with palpation to the right cva, no erythema or warmth. HAs right upper tenderness, no guarding and no pain elsewhere. Given the pain has been 2 weeks and her location of pain will obtain labs to evaluate for hepatitis and pancreatitis and obtain ct to evaluate for kidney stones . No hypoxia, tachycardia or pleuritic chest pain so doubt PE. labs and imaging show no emergent findings, ct shows nonobstructing kidney stones, hepatomegaly, moderate stool burden though she states she has regular bowel movements. Feels improved after toradol. Suspect the pain could be from the fatty infiltrate of the liver vs back strain. Will have her take ibuprofen and tylenol as well as muscle relaxers, discussed results with patient and that she needs to f/u with pcp and return precautions given. HAs very mild tenderness to deep palpation to the right upper abdome, no guarding or rebound Differential Diagnosis Differential Diagnosis: back strain, kidney stone, cholecystitis, pyelo Medical Records Medical records reviewed: Yes I reviewed the patient's medical records. Imaging Data Radiologic Study: Attestation: I personally reviewed and interpreted this imaging study as follows: Imaging: CT Scan Radiologist's impression: IMPRESSION: 1. Hepatomegaly and moderate diffuse fatty infiltration of the liver. Correlate with LFTs. Recommend GI follow-up. 2. Mild splenomegaly. 3. Bilateral kidney stones. 4. Moderate stool burden. 5. A number of nondilated fecalized distal small bowel loops are noted. This may be related to constipation. If there is concern for a motility disorder, suggest GI consult. Lab Data Lab results reviewed: Yes I reviewed the patient's lab results. HPI General Mode of arrival: ambulatory . Date/Time Provider Initiated Documentation: 07/02/21 09:14 . Limitations to Documentation: no limitations . Information obtained by: patient . History of Present Illness 41 year old F presents to the emergency department with the chief complaint of right sided back pain, described as moderate, Quality is described as stabbing and aching, and is localized to the right. Patient abdomen. Patient started experiencing this day(s) (14) and it has been constant. No relieving factors improve symptom(s), No exacerbating factors reported . Patient notes other (nausea). Patient did receive the following treatments prior to arrival, none Related Data Home Medications Medication Instructions Recorded Confirmed fluticasone propionate 50 1 spray NS BID PRN #47.4 ml 12/16/19 07/02/21 mcg/actuation nasal spray,suspension cholecalciferol (vitamin D3) 125 250 mcg PO DAILY cap 01/26/20 07/02/21 mcg (5,000 unit) capsule hydrochlorothiazide 25 mg tablet 25 mg PO QAM #90 tab 02/20/21 07/02/21 metoprolol succinate 50 mg 50 mg PO DAILY #90 tab 02/27/21 07/02/21 tablet,extended release 24 hr potassium chloride 20 mEq 20 meq PO DAILY #90 tab 02/27/21 07/02/21 tablet,extended release omeprazole 20 mg capsule,delayed 20 mg PO DAILY #90 cap 03/30/21 07/02/21 release loratadine 10 mg tablet 10 mg PO DAILY PRN #90 tab 03/31/21 07/02/21 duloxetine 30 mg capsule,delayed 30 mg PO DAILY #30 cap 05/23/21 07/02/21 release cyclobenzaprine 10 mg PO TID PRN #20 tab 07/02/21 Previous Rx's Medication Instructions Recorded fluticasone propionate 50 1 spray NS BID PRN #47.4 ml 12/16/19 mcg/actuation nasal spray,suspension hydrochlorothiazide 25 mg tablet 25 mg PO QAM #90 tab 02/20/21 metoprolol succinate 50 mg 50 mg PO DAILY #90 tab 02/27/21 tablet,extended release 24 hr potassium chloride 20 mEq 20 meq PO DAILY #90 tab 02/27/21 tablet,extended release omeprazole 20 mg capsule,delayed 20 mg PO DAILY #90 cap 03/30/21 release loratadine 10 mg tablet 10 mg PO DAILY PRN #90 tab 03/31/21 duloxetine 30 mg capsule,delayed 30 mg PO DAILY #30 cap 05/23/21 release cyclobenzaprine 10 mg PO TID PRN #20 tab 07/02/21 Allergies Allergy/AdvReac Type Severity Reaction Status Date / Time metformin Allergy Severe Verified 07/02/21 09:30 lisinopril AdvReac Intermediate Tingly lips Verified 07/02/21 09:30 General Stated Complaint: FlankPain JASBIR: 4 Review of Systems All systems reviewed & are unremarkable except as noted in HPI and below Constitutional Constitutional: Denies chills, Denies fever(s) and Denies weakness Cardiovascular Cardiovascular: Denies chest pain and Denies dyspnea Respiratory Respiratory: Denies cough and Denies dyspnea Gastrointestinal Gastrointestinal: Denies vomiting Musculoskeletal Musculoskeletal: Denies joint swelling Neurologic Neurologic: Denies weakness Psychiatric Psychiatric: Denies depression PFSH All Active Problems (Updated 07/02/21 @ 11:00 by Janes Chun MD) Abdominal pain (Acute) Back pain (Acute) Foot pain (Acute) Annual physical exam (Acute) Bilateral kidney stones (Acute) Marfanoid habitus (Acute) Hypertension (Chronic) Diabetes mellitus (Chronic) Ocular rosacea (Acute) Fatigue (Acute 12/22/12) Breast cyst (Acute) Annual physical exam (Acute 01/28/18) Hypermobility syndrome (Chronic) Increased BMI (Chronic) 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) PCOS (polycystic ovarian syndrome) (Chronic 10/08/17) Medical History (Updated 07/02/21 @ 11:00 by Janes Chun MD) Acne (09/17/16) Chapped lips Chest pain Cystitis Disorder of gallbladder (05/15/12) Dysfunctional uterine bleeding Elevated blood pressure reading Female infertility Hydronephrosis Infection due to Leah albicans (11/09/14) Mouth ulceration (04/02/14) Pain of left calf (01/21/17) PCOS (polycystic ovarian syndrome) Staphylococcus infection (08/13/16) Stomatitis Stomatitis (05/05/14) Surgical History (Updated 11/06/19 @ 11:38 by Katelynn Michael MD, [place]) Appendectomy (~1999) Biopsy, Soft Tissue (10/18/17) skin of scalp - follicular cyst excision sebaceous cyst on scalp x2 (03/06/18) History of appendectomy History of umbilical hernia repair (04/27/16) Kidney Stone Extraction 06/07/16;DR. [place] Repair of umbilical hernia (04/27/16) Family History (Updated 05/30/21 @ 09:32 by Shay Jimenez) Mother Heart disease Myocardial infarction FAMILY HISTORY Diabetes Lung cancer Paternal Grandfather Epilepsy Maternal Aunt Heart disease Maternal Aunt Heart disease Father Diabetes Stroke Heart disease Depression Sister No problems noted. Brother Essential hypertension Brother No problems noted. Son No problems noted. Son No problems noted. Son Marfan syndrome Maternal Grandfather No problems noted. Maternal Grandmother No problems noted. Paternal Grandmother No problems noted. Social History (Updated 05/30/21 @ 09:32 by Shay Jimenez) Smoking/Tobacco Use Status: Never Second Hand Exposure: No Smoking risk assessment performed?: Yes Alcohol Intake: current Alcohol Intake frequency: a few times a month Alcohol type: wine Drug use: Never Substance use type: does not use Caregiver/Support person: Yes Household members: spouse and children Housing: house Communication Needs: None Do you need help understanding health information?: Never Pets and animals: Yes Pets and animals: dog(s) Sexually active: Yes Do you think of yourself as: straight/heterosexual Current gender identity: female What is your relationship status?: How often do you talk on the phone with friends or family?: once per week How often do you get together with friends or relatives?: never How often do you attend catholic or bahai services?: 1-3 times per year Do you belong to any clubs or organized social groups?: no Panel score (0-1 are the most socially isolated patients): 1 What type of physical activity do you participate in: weight lifting and other Details: Cardio Duration: 30-45 minutes/day Frequency: 5-6 times per week Naty/Confucianism: Scientology Special naty needs: No Seatbelt use: always Helmet use: Yes Helmet use: always Drive intox or ride w/intox lifter/driver: No Do you feel safe in your relationship?: Yes Exam Const General: no acute distress Orientation: alert HENMT Head: normal to inspection Ears: external ears normal General nose exam: external nose normal Mouth: moist mucous membranes Eyes General: appearance normal, both eyes and all related structures Neck Neck: normal visual inspection Resp Effort & Inspection: normal respiratory effort and able to speak in complete sentences Cardio Rate: regular rate GI Palpation: soft and tender Back/Spine/Pelvis Back: CVA tenderness Skin General skin exam: no rashes or lesions noted Neuro General: patient alert and patient oriented x3 Extrem General: normal to inspection Psych Mental Status: mental status grossly normal Course Vital Signs Vital signs: Vital Signs Temperature 36.7 C 07/02/21 09:21 Pulse 89 07/02/21 09:21 Respiratory Rate 16 07/02/21 09:21 Blood Pressure 166/89 H 07/02/21 09:21 Pulse Oximetry 95 07/02/21 09:21 Temperature 36.7 C 07/02/21 09:21 Temperature Source Skin 07/02/21 09:21 Pulse 89 07/02/21 09:21 Respiratory Rate 16 07/02/21 09:21 Respiratory Effort Non-Labored 07/02/21 09:21 Blood Pressure 166/89 H 07/02/21 09:21 Blood Pressure Position Sitting 07/02/21 09:21 Pulse Oximetry 95 07/02/21 09:21 Oxygen Delivery Method Room Air 07/02/21 09:21 Oxygen Flow Rate 0 07/02/21 09:21 Pain Level 8 07/02/21 09:21 Lab/Test Results Lab/Test Results: Laboratory Tests Range/Units 07/02/21 09:20 Urine Color (Yellow) Yellow Urine Clarity (Clear) Clear Urine pH (5-8) 6.5 Ur Specific [place] (1.005-1.025) 1.025 Urine Protein (Negative) mg/dL Negative Urine Ketones (Negative) mg/dL Negative Urine Blood (Negative) Negative Urine Nitrite (Negative) Negative Urine Bilirubin (Negative) Negative Urine Urobilinogen (Up TO 0.2) EU/dL 0.2 Ur Leukocyte Esterase (Negative) Negative Urine Glucose (Negative) mg/dL Negative POC- Test(urine) Negative
[2021-07-02] MEDS: Normal Saline 1,000 ML 1000 ML IV (09:48)
[2021-07-02 09:50] LABS: Abs Immature Grans 0.04 10^3/uL (0.0-0.06); Absolute Basophil Count 0.05 10^3/uL (0.0-0.2); Absolute Eosinophil Count 0.34 10^3/uL (0.0-0.7); Absolute Monocyte Count 0.68 10^3/uL (0.1-0.8); Absolute Neutrophil Count 5.67 10^3/uL (1.2-6.7); Basophils % 0.5; Eosinophils % 3.6; HCT 42.3 % (36.0-46.0); HGB 14.4 g/dL (11.2-15.7); Immature Grans % 0.4; Lymphocytes % 28.5; MCH 28.5 pg (27.0-33.0); MCV 83.8 fL (80-95); MPV 9.8 fL (8.0-11.0); Monocytes % 7.2; Neutrophils % 59.8; Nucleated RBC 0 %; Platelet Count 225 10^3/uL (130-400); RBC 5.05 10^6/uL (3.93-5.22); RDW-SD 42.3 fL; WBC 9.48 10^3/uL (4.4-10.8)
[2021-07-02] MEDS: Ondansetron 4 MG/2 ML VIAL IVP (09:51)
[2021-07-02] MEDS: Ketorolac 15 MG/ML VIAL IVP (09:52)
[2021-07-02] MEDS: Omnipaque 350 MG/ML 100 ML BTL IV (10:05)
[2021-07-02] MEDS: Normal Saline Flush 10 ML SYR IVP (10:06)
[2021-07-02 10:08] LABS: ALT 47 U/L (14-59); AST 24 U/L (15-37); Alkaline Phosphatase 77 U/L (46-116); Anion Gap 10.7 mmol/L (3-11); BUN 24 mg/dL (7-18); Bilirubin, Total 1.2 mg/dL (0.2-1.0); CO2 24.3 mmol/L (21.0-32.0); Calcium 9.3 mg/dL (8.5-10.1); Chloride 101 mmol/L (98-107); Glucose 143 mg/dL (74-106); Lipase 103 U/L (73-393); Magnesium 1.7 mg/dL (1.8-2.4); Potassium 3.8 mmol/L (3.5-5.1); Sodium 136 mmol/L (136-145); Total Protein 7.8 g/dL (6.4-8.2)
--- NOTE | 2021-07-02 10:38 | DI.VRAD_ITS ---
PROCEDURE INFORMATION: Exam: CT Abdomen And Pelvis With Contrast Exam date and time: 07/02/2021 9:35 AM Age: 41 years old Clinical indication: Other: Right sided back and abdominal pain; Prior surgery; Surgery date: 6+ months; Surgery type: Appendectomy, cholecystectomy, HX of stomnes TECHNIQUE: Imaging protocol: Computed tomography of the abdomen and pelvis with contrast. Contrast material: OMNIPAQUE 350; Contrast volume: 100 ml; Contrast route: INTRAVENOUS (IV); COMPARISON: CT ABDOMEN PELVIS WO 10/27/2018 9:35 AM FINDINGS: Limitations: Suboptimal contrast bolus. Liver: 22.7 cm longitudinal dimension of liver, consistent with hepatomegaly. The liver is diffusely moderately hypoattenuating. Otherwise unremarkable liver. Gallbladder and bile ducts: The gallbladder is surgically absent. No biliary dilatation. Pancreas: Normal. No ductal dilation. Spleen: 13 cm cm maximum dimension of the spleen. A small rounded isoattenuating splenule is noted adjacent to the lower pole of the spleen. Adrenal glands: Normal. No mass. Kidneys and ureters: Nonobstructive bilateral kidney stones, with largest measuring 5 mm in the right kidney, and 8 mm in the left kidney. No ureteral stone identified. There is a 2.8 x 1.6 x 2.6 cm cm parapelvic cyst in the upper pole of the left kidney. Otherwise unremarkable kidneys. Stomach and bowel: Moderate stool burden. A sigmoid diverticulum is noted, without evidence of diverticulitis. A number of nondilated fecalized distal small bowel loops are noted. No other gross bowel abnormalities. No bowel obstruction. Appendix: Status post appendectomy. Intraperitoneal space: Unremarkable. No free air. No significant fluid collection. Vasculature: Unremarkable. No abdominal aortic aneurysm. Lymph nodes: Unremarkable. No enlarged lymph nodes. Urinary bladder: Unremarkable as visualized. Reproductive: Right ovarian cyst demonstrating a thickened mildly vascular rim, consistent with a corpus luteum, measuring 1.6 cm. Otherwise unremarkable reproductive structures. Bones/joints: Severe disc space height loss at L5-S1. No acute or suspicious osseous abnormalities. Soft tissues: Moderate diastasis of the rectus abdominus muscles, measuring 11.2 cm. IMPRESSION: 1. Hepatomegaly and moderate diffuse fatty infiltration of the liver. Correlate with LFTs. Recommend GI follow-up. 2. Mild splenomegaly. 3. Bilateral kidney stones. 4. Moderate stool burden. 5. A number of nondilated fecalized distal small bowel loops are noted. This may be related to constipation. If there is concern for a motility disorder, suggest GI consult. Dictated and Authenticated by: Nieves Francois MD. Ordering:LINDA Marrero MD
[2021-07-02 10:45] VITALS: BP 132/64; PULSE 79; RESP 14; O2SAT 96
== END 2021-07-02 11:21 | disposition home or self-care (01) ==
PROVIDERS: Emergency Provider Emergency Medicine; PCP Family Medicine
DX: R10.11 Right upper quadrant pain (principal); M54.89 Other dorsalgia; N20.0 Calculus of kidney; Z87.442 Personal history of urinary calculi
CPT/HCPCS: 36415; 80053; 81025; 83690; 96361; 96374; 96375; 99285; 74177; 81003; 83735; 85025; 99284; J1885; J2405; J3490

== ENCOUNTER 2021-07-20 03:16 | Outpatient (CLI) | payer BC, SELFPAY ==
[2021-07-20 13:24] LABS: Abs Immature Grans 0.08 10^3/uL (0.0-0.06); Absolute Basophil Count 0.04 10^3/uL (0.0-0.2); Absolute Lymphocyte Count 2.11 10^3/uL (1.2-3.4); Absolute Monocyte Count 0.63 10^3/uL (0.1-0.8); Absolute Neutrophil Count 6.77 10^3/uL (1.2-6.7); Basophils % 0.4; Immature Grans % 0.8; Lymphocytes % 21.5; MCH 28.4 pg (27.0-33.0); MCHC 33.3 % (32.0-36.0); MCV 85.3 fL (80-95); MPV 10.2 fL (8.0-11.0); Monocytes % 6.4; Neutrophils % 68.9; Nucleated RBC 0 %; Platelet Count 182 10^3/uL (130-400); RBC 4.57 10^6/uL (3.93-5.22); RDW 15.2 % (11.7-14.6); RDW-SD 46.5 fL; WBC 9.83 10^3/uL (4.4-10.8)
[2021-07-20 14:22] LABS: ALT 52 U/L (14-59); AST 29 U/L (15-37); Albumin 3.5 g/dL (3.4-5.0); Alkaline Phosphatase 58 U/L (46-116); Anion Gap 10.9 mmol/L (3-11); BUN 13 mg/dL (7-18); Bilirubin, Total 0.8 mg/dL (0.2-1.0); CO2 25.1 mmol/L (21.0-32.0); Calcium 8.9 mg/dL (8.5-10.1); Chloride 102 mmol/L (98-107); Glucose 128 mg/dL (74-106); Potassium 3.7 mmol/L (3.5-5.1); Sodium 138 mmol/L (136-145); Total Protein 6.5 g/dL (6.4-8.2)
[2021-07-20 14:34] LABS: HCG Quant, Pregnancy 2053 mIU/mL (1-3)
== END 2021-07-20 03:17 | disposition home or self-care (01) ==
LOC: LBO 03:16
PROVIDERS: PCP Family Medicine; Visit Provider Family Medicine
DX: R16.2 Hepatomegaly with splenomegaly, not elsewhere classified; Z32.01 Encounter for pregnancy test, result positive
CPT/HCPCS: 36415; 80053; 84702; 85025

== ENCOUNTER 2021-10-30 14:52 | Emergency (ER) | payer OTHER, SELFPAY ==
[2021-10-30 15:03] VITALS: BP 151/80; PULSE 84; RESP 16; TEMP 36.3; O2SAT 96
--- NOTE | 2021-10-30 15:34 | W.ED.GENAD ---
Discharge Plan Disposition Patient Disposition: HOME Condition: Stable Discharge Details Clinical Impression: Concussion Primary Care Provider: Katelynn Michael ED Provider: Loraine Ribeiro Home Meds and New Rx's Prescriptions: Continued cholecalciferol (vitamin D3) 125 mcg (5,000 unit) capsule 250 mcg PO DAILY 0RF labetalol 100 mg tablet 100 mg PO BID Qty: 60 8RF fluticasone propionate 50 mcg/actuation spray,suspension 1 spray NS BID PRN (Reason: allergy symptoms) Qty: 47.4 4RF loratadine 10 mg tablet 10 mg PO DAILY PRN (Reason: allergy symptoms) Qty: 90 4RF folic acid 400 mcg Tablet 400 mcg PO DAILY 0RF ndvksfzy-gtj-Sq-FA 1 mg Tablet 1 tab PO DAILY 0RF Discharge Instructions Instructions: Concussion (ED) Additional Instructions: As we discussed, your neurologic exam is intact at that time. However, your injury and symptoms are most consistent with a concussion. We have decided to hold off on imaging at this time. Please encourage hydration. You may continue Tylenol and/or ibuprofen as needed for discomfort. Please encourage brain rest including adequate sleep, avoidance of screens and limited physical exertion. Please follow-up with your primary care provider at the end of the week for reevaluation. However, I would like you to seek care urgently once again if you develop increased symptoms, worsening headache, vomiting, inability stay hydrated, confusion, weakness or other new/worsening symptoms. Stand Alone Forms: Work Release Referrals: Katelynn Michael [place], [place] [Primary Care Provider] - Discharge Data Discharge Date/Time-TO BE ENTERED AT DEPARTURE: 10/30/21 16:37 Medical Decision Making Patient is a pleasant 41-year-old female, accompanied by , presenting with chief complaint of headache after getting hit in the head with kickball. 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 One of the studentts kicked hte ball and it struck her on the right side of her head. Denies LOC. States she, saw starts and was nauseatted. These symptoms have resolved. She denies confusion, focal weakness, sensoary deficit. No visual changes. States head is in the right side o arlene head, comes toward the posterior aspect. No midline neck pain, no other injury at th etime of the incident. No amnesia. On exam, patient appears nontoxic. No objective evidence of trauma. No evidence of skull fracture. No hemotympanum. EOM intact. No facial trauma. No midline cervical pain, full ROM. Neurologic exam is intact. Based on [place] Head CT Rule, brandyn does not require CT scan. I discussed risks/benefits with patient regarding imaging. She agrees to holding off for now. Her history and exam more consistent with concussion over ICH. Patient agrees to hold off for now. She reports that she [place] very close by. She will enocurage hydration, will follow post-concussion protocol. Strict return precautions were discussed. Will give APAP and NSAID to help wiht discomfort. Advised close f/u with PCP. All of her questions and concerns were addressed, she is in agreement with this plan. Given work note at patient request. HPI General Date/Time Provider Initiated Documentation: 10/30/21 14:54. Limitations to Documentation: no limitations. Information obtained by: patient, family () and RN notes reviewed. History of Present Illness 41 year old F presents to the emergency department with the chief complaint of head injury, described as moderate, with intensity rated at 5. Quality is described as aching, and is localized to the head. Patient reports no radiation. Patient started experiencing this hour(s) and it has been constant (some of the symptoms have resolved). improves with No relieving factors improve symptom(s), No exacerbating factors reported . Patient notes headaches; denies confusion, fever/chills, loss of appetite, nausea/vomiting (nauseated initially, since resolved), syncope and weakness. Patient did receive the following treatments prior to arrival, none Related Data Home Medications Medication Instructions Recorded Confirmed fluticasone propionate 50 1 spray NS BID PRN #47.4 ml 12/16/19 10/30/21 mcg/actuation nasal spray,suspension cholecalciferol (vitamin D3) 125 250 mcg PO DAILY cap 01/26/20 10/30/21 mcg (5,000 unit) capsule loratadine 10 mg tablet 10 mg PO DAILY PRN #90 tab 03/31/21 10/30/21 labetalol 100 mg tablet 100 mg PO BID #60 tab 07/18/21 10/30/21 folic acid 400 mcg tablet 400 mcg PO DAILY 10/30/21 10/30/21 [id number]-[id number]-He-FA 1 mg 1 tab PO DAILY 10/30/21 10/30/21 tablet Previous Rx's Medication Instructions Recorded fluticasone propionate 50 1 spray NS BID PRN #47.4 ml 12/16/19 mcg/actuation nasal spray,suspension loratadine 10 mg tablet 10 mg PO DAILY PRN #90 tab 03/31/21 labetalol 100 mg tablet 100 mg PO BID #60 tab 07/18/21 Allergies Allergy/AdvReac Type Severity Reaction Status Date / Time metformin Allergy Severe Verified 10/30/21 15:07 lisinopril AdvReac Intermediate Tingly lips Verified 10/30/21 15:07 General Stated Complaint: HeadInjury JASBIR: 4 Review of Systems Constitutional Constitutional: Reports as per HPI, Reports fatigue, Denies fever(s), Reports headache(s) and Denies weakness Eyes Eyes: Reports as per HPI, Denies blurry vision and Denies change in vision ENT Ears, Nose, Mouth, and Throat: Denies vertigo, Reports headache(s) and Denies neck pain Cardiovascular Cardiovascular: Reports as per HPI, Denies chest pain and Denies dyspnea Respiratory Respiratory: Reports as per HPI, Denies cough and Denies dyspnea Gastrointestinal Gastrointestinal: Reports as per HPI, Denies nausea and Denies vomiting Musculoskeletal Musculoskeletal: Reports as per HPI, Denies back pain, Denies neck pain and Denies numbness Neurologic Neurologic: Reports as per HPI, Denies abnormal movements, Denies abnormal speech, Denies behavioral changes, Denies confusion, Denies vertigo, Reports headache(s), Denies localized weakness, Denies numbness, Denies sensory deficit and Denies weakness Psychiatric Psychiatric: Denies behavioral changes and Denies confusion Endocrine Endocrine: Reports fatigue PFSH All Active Problems (Updated 10/30/21 @ 16:17 by REESE Pate) Concussion (Acute) (Acute) Fatigue (Acute) Hepatosplenomegaly (Acute) Abdominal pain (Acute) Back pain (Acute) Foot pain (Acute) Annual physical exam (Acute) Bilateral kidney stones (Acute) Marfanoid habitus (Acute) borderline ascending aorta Hypertension (Chronic) Diabetes mellitus (Chronic) Ocular rosacea (Acute) Fatigue (Acute 12/22/12) Breast cyst (Acute) Annual physical exam (Acute 01/28/18) Hypermobility syndrome (Chronic) HYPERMOBILITY OF MULTIPLE JTS; 05/27 ECHO: NEG MARFAN'S Increased BMI (Chronic) 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) L5S1 VACUUM DISC PCOS (polycystic ovarian syndrome) (Chronic 10/08/17) Medical History (Updated 10/30/21 @ 16:17 by REESE Pate) Acne (09/17/16) Chapped lips Chest pain Cystitis Disorder of gallbladder (05/15/12) Dysfunctional uterine bleeding Elevated blood pressure reading Female infertility Hydronephrosis Infection due to Leah albicans (11/09/14) Mouth ulceration (04/02/14) Pain of left calf (01/21/17) PCOS (polycystic ovarian syndrome) Staphylococcus infection (08/13/16) Stomatitis Stomatitis (05/05/14) Surgical History (Updated 11/06/19 @ 11:38 by Katelynn Michael MD, [place]) Appendectomy (~1999) Biopsy, Soft Tissue (10/18/17) skin of scalp - follicular cyst excision sebaceous cyst on scalp x2 (03/06/18) History of appendectomy History of umbilical hernia repair (04/27/16) Kidney Stone Extraction 06/07/16;DR. SANABRIA Repair of umbilical hernia (04/27/16) Family History (Updated 05/30/21 @ 09:32 by Shay Jimenez) Mother Heart disease Myocardial infarction FAMILY HISTORY Diabetes Lung cancer Paternal Grandfather Epilepsy Maternal Aunt Heart disease Maternal Aunt Heart disease Father Diabetes Stroke Heart disease Depression Sister No problems noted. Brother Essential hypertension Brother No problems noted. Son No problems noted. Son No problems noted. Son Marfan syndrome Maternal Grandfather No problems noted. Maternal Grandmother No problems noted. Paternal Grandmother No problems noted. Social History (Updated 05/30/21 @ 09:32 by Shay Jimenez) Smoking/Tobacco Use Status: Never Second Hand Exposure: No Smoking risk assessment performed?: Yes Alcohol Intake: current Alcohol Intake frequency: a few times a month Alcohol type: wine Drug use: Never Substance use type: does not use Caregiver/Support person: Yes Household members: spouse and children Housing: house Communication Needs: None Do you need help understanding health information?: Never Pets and animals: Yes Pets and animals: dog(s) Sexually active: Yes Do you think of yourself as: straight/heterosexual Current gender identity: female What is your relationship status?: How often do you talk on the phone with friends or family?: once per week How often do you get together with friends or relatives?: never How often do you attend cheondoism or mu-ism services?: 1-3 times per year Do you belong to any clubs or organized social groups?: no Panel score (0-1 are the most socially isolated patients): 1 What type of physical activity do you participate in: weight lifting and other Details: Cardio Duration: 30-45 minutes/day Frequency: 5-6 times per week Naty/Nondenominational: Hinduism Special naty needs: No Seatbelt use: always Helmet use: Yes Helmet use: always Drive 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 Do you feel safe in your relationship?: Yes Exam Const General: cooperative, healthy appearing, comfortable, no acute distress, well developed and well groomed Nutritional Appearance: well nourished and overweight Orientation: alert, awake and oriented x3 HENMT Head: normal to inspection, no palpable skull fracture, normocephalic and atraumatic Ears: hearing grossly normal bilaterally, external ears normal and TM's normal bilaterally General nose exam: external nose normal Mouth: oral mucosae normal and moist mucous membranes Throat: posterior oropharynx normal Eyes General: appearance normal, both eyes and all related structures Alignment and Position: alignment normal Periorbital: periorbital findings normal Eyelids: eyelids normal Sclera: sclerae normal Cornea: corneas normal Pupils: PERRL EOM: EOM intact bilaterally Neck Neck: normal visual inspection and full ROM Resp Effort & Inspection: normal respiratory effort, able to speak in complete sentences and no respiratory distress Auscultation: clear to auscultation bilaterally, no rales, no rhonchi and no wheezes Cardio Rate: regular rate Rhythm: regular rhythm Heart Sounds: S1 normal and S2 normal Back/Spine/Pelvis Cervical Spine: normal cervical lordosis and cervical ROM normal Skin General skin exam: no rashes or lesions noted Neuro General: patient alert, patient awake and patient oriented x3 Cranial Nerves: CN's II-XI intact bilaterally Cognition: normal cognition Speech: speech normal Gait: normal gait Motor: muscle tone normal throughout, strength 5/5 throughout, no pronator drift, no movement abnormalities noted and no fasciculations Sensory Exam: no sensory deficits noted Coordination: pzwdjd-dx-pmeh test normal, jbfn-pd-vebu test normal, Romberg test normal, tandem gait normal, Does not sway with eyes open and rapid alternating movement UE normal Extrem General: normal to inspection, capillary refill normal, no pedal edema and no calf tenderness Psych Appearance: grossly normal and well kempt Mental Status: mental status grossly normal Speech and Movement: speech and movement normal Course Vital Signs Vital signs: Vital Signs Temperature 36.3 C L 10/30/21 15:03 Pulse 84 10/30/21 15:03 Respiratory Rate 16 10/30/21 15:03 Blood Pressure 151/80 H 10/30/21 15:03 Pulse Oximetry 96 10/30/21 15:03 Temperature 36.3 C L 10/30/21 15:03 Temperature Source Skin 10/30/21 15:03 Pulse 84 10/30/21 15:03 Respiratory Rate 16 10/30/21 15:03 Respiratory Effort 10/30/21 15:03 Blood Pressure 151/80 H 10/30/21 15:03 Blood Pressure Position Sitting 10/30/21 15:03 Pulse Oximetry 96 10/30/21 15:03 Oxygen Delivery Method Room Air 10/30/21 15:03 Oxygen Flow Rate 0 10/30/21 15:03 Pain Level 5 10/30/21 15:03 Lab/Test Results Lab/Test Results: POC- Test(urine) Negative
== END 2021-10-30 16:37 | disposition home or self-care (01) ==
PROVIDERS: Emergency Provider Physician Assistant; PCP Family Medicine
DX: S06.0X0A Concussion without loss of consciousness, initial encounter (principal); W21.09XA Struck by other hit or thrown ball, initial encounter; Y99.0 Civilian activity done for income or pay
CPT/HCPCS: 99282; 99283

== ENCOUNTER 2021-12-06 02:47 | Outpatient (CLI) | payer BC, SELFPAY ==
[2021-12-06 07:40] LABS: Hemoglobin A1C 6.1 % (<5.7)
[2021-12-06 08:19] LABS: ALT 36 U/L (14-59); AST 13 U/L (15-37); Alkaline Phosphatase 74 U/L (46-116); Anion Gap 11.5 mmol/L (3-11); BUN 17 mg/dL (7-18); Bilirubin, Total 1.1 mg/dL (0.2-1.0); CO2 24.5 mmol/L (21.0-32.0); Calcium 8.8 mg/dL (8.5-10.1); Calculated LDL 111 mg/dL (<100); Chloride 105 mmol/L (98-107); Cholesterol 167 mg/dL (<200); Glucose 135 mg/dL (74-106); HDL Cholesterol 41 mg/dL (40-60); Potassium 4.5 mmol/L (3.5-5.1); Sodium 141 mmol/L (136-145); Total Protein 7.1 g/dL (6.4-8.2); Triglyceride 78 mg/dL (<150)
== END 2021-12-06 02:48 | disposition home or self-care (01) ==
LOC: LBO 02:47
PROVIDERS: PCP Family Medicine; Visit Provider Family Medicine
DX: Z00.00 Encounter for general adult medical examination without abnormal findings (principal); E11.9 Type 2 diabetes mellitus without complications
CPT/HCPCS: 36415; 80053; 80061; 83036

== ENCOUNTER 2022-01-17 17:12 | Outpatient (REF) | payer BC, SELFPAY ==
[2022-01-17 17:38] LABS: Bilirubin Negative (Negative); Blood Large (Negative); Clarity Sl Cloudy (Clear); Glucose Negative (Negative); Ketones Negative (Negative); Leukocyte Esterase Moderate (Negative); Nitrite Negative (Negative); Specific Gravity 1.025 (1.005-1.025); Urobilinogen 0.2 EU/dL (Up TO 0.2); pH 6.5 (5-8)
[2022-01-17 17:46] LABS: Bacteria Moderate HPF (Negative); C & S Indicated? C&S Done As Ordered; Casts Negative LPF (Negative); Crystals Negative HPF (Negative); Epithelial Cells Few HPF (Negative); Mucus Negative (Negative); RBC >50 HPF (0-2); WBC >50 HPF (0-5)
== END 2022-01-17 17:13 | disposition home or self-care (01) ==
LOC: LBN 17:12
PROVIDERS: Nurse Practitioner Gerontology; PCP Family Medicine; Visit Provider Urology
DX: N39.0 Urinary tract infection, site not specified (principal)
CPT/HCPCS: 87077; 81003; 81015; 87086; 87186

== ENCOUNTER 2022-03-08 04:09 | Outpatient (CLI) | payer BC, SELFPAY ==
[2022-03-08 14:50] LABS: HCG Qual (Serum) Negative
[2022-03-08 23:29] LABS: LH 9.7 mIU/mL (See Note)
[2022-03-08 23:31] LABS: FSH 5.6 mIU/mL (See Note)
== END 2022-03-08 04:10 | disposition home or self-care (01) ==
LOC: LBO 04:09
PROVIDERS: PCP Family Medicine; Visit Provider Family Medicine
DX: N91.2 Amenorrhea, unspecified (principal)
CPT/HCPCS: 36415; 83001; 83002; 84703

== ENCOUNTER 2022-04-09 18:36 | Emergency (ER) | payer BC, SELFPAY ==
[2022-04-09 18:41] VITALS: BP 172/87; PULSE 84; RESP 18; TEMP 36.2; O2SAT 97
--- NOTE | 2022-04-09 18:45 | DI.RAD_ITS ---
Exam(s) XR FOOT RT COMPLETE EXAM: XR FOOT RT COMPLETE CLINICAL HISTORY: crush injury. TECHNIQUE: 2D digital imaging was performed. COMPARISON: CR XR foot LT complete from 09/19/2018 FINDINGS: 3 views There is dorsal soft tissue swelling but no evidence of fracture nor diastasis of the Lisfranc joint. Bone density normal. No osseous lesions nor erosions. Small inferior calcaneal spur noted. IMPRESSION: Soft tissue swelling but no osseous findings. DATA REPOSITORY: RADIATION DOSE DELIVERED:
--- NOTE | 2022-04-09 19:22 | DI.VRAD_ITS ---
PROCEDURE INFORMATION: Exam: XR Right Foot Exam date and time: 04/09/2022 7:14 PM Age: 41 years old Clinical indication: Other: Crush injury to right foot TECHNIQUE: Imaging protocol: Radiologic exam of the Right foot. Views: 3 or more views. COMPARISON: No relevant prior studies available. FINDINGS: Bones/joints: Mild calcaneal spur. No acute fracture or dislocation Soft tissues: Dorsal soft tissue swelling along the mid foot IMPRESSION: Soft tissue swelling as noted. No acute fracture Dictated and Authenticated by: Shaan Young MD. Ordering:ELMER Brennan MD
--- NOTE | 2022-04-09 19:25 | W.ED.GENAD ---
Discharge Plan Disposition Patient Disposition: HOME Condition: Stable Discharge Details Clinical Impression: Contusion of foot, right Primary Care Provider: Katelynn Michael ED Provider: Mika Simons Home Meds and New Rx's Prescriptions: Continued cholecalciferol (vitamin D3) 125 mcg (5,000 unit) capsule 250 mcg PO DAILY labetalol 100 mg tablet 100 mg PO BID Qty: 60 8RF fluticasone propionate 50 mcg/actuation spray,suspension 1 spray NS BID PRN (Reason: allergy symptoms) Qty: 47.4 4RF loratadine 10 mg tablet 10 mg PO DAILY PRN (Reason: allergy symptoms) Qty: 90 4RF folic acid 400 mcg Tablet 400 mcg PO DAILY dinqmyry-nyd-Be-FA 1 mg Tablet 1 tab PO DAILY Discharge Instructions Instructions: Foot Contusion (ED) Additional Instructions: Postop shoe and crutches as needed, advance activity as tolerated. Rest, elevate, cool compresses every 2 hours for 20 minutes. Eatn-nkx-uwmyhuo Tylenol and/or Motrin as directed for discomfort. Please watch for new or worsening symptoms and return to the ER for any concerns. Medical Decision Making 41-year-old female who sustained a right foot crush injury about 45 minutes prior to arrival. Will obtain x-ray and reassess X-ray reveals soft tissue swelling, no acute bony abnormality. Discussed x-ray with patient. Will supply postop shoe and crutches. Standard discharge and return precautions were provided. Patient understands, is agreeable to this plan, and has no additional questions or concerns upon discharge. This documentation was generated using [employer] dictation system, please disregard any oddities of phrase or misspellings. Medical Records Medical records reviewed: Yes I reviewed the patient's medical records. Imaging Data Radiologic Study: Attestation: I personally reviewed and interpreted this imaging study as follows: Imaging: X-Ray Radiologist's impression: PROCEDURE INFORMATION: Exam: XR Right Foot Exam date and time: 04/09/2022 7:14 PM Age: 41 years old Clinical indication: Other: Crush injury to right foot TECHNIQUE: Imaging protocol: Radiologic exam of the Right foot. Views: 3 or more views. COMPARISON: No relevant prior studies available. FINDINGS: Bones/joints: Mild calcaneal spur. No acute fracture or dislocation Soft tissues: Dorsal soft tissue swelling along the mid foot IMPRESSION: Soft tissue swelling as noted. No acute fracture HPI General Mode of arrival: ambulatory. Date/Time Provider Initiated Documentation: 04/09/22 18:41. Limitations to Documentation: no limitations. Information obtained by: patient. History of Present Illness 41 year old F presents to the emergency department with the chief complaint of R foot injury, described as severe, with intensity rated at 8. Quality is described as aching, and is localized to the right and lower extremity. Patient reports no radiation. Patient started experiencing this minute(s) (45) and it has been constant. Immobilization improves symptom(s), Movement worsens symptoms . Patient notes no other symptoms.. Patient did receive the following treatments prior to arrival, none Related Data Home Medications Medication Instructions Recorded Confirmed fluticasone propionate 50 1 spray NS BID PRN allergy 12/16/19 04/09/22 mcg/actuation nasal symptoms #47.4 mL spray,suspension cholecalciferol (vitamin D3) 125 250 mcg PO DAILY 01/26/20 04/09/22 mcg (5,000 unit) capsule loratadine 10 mg tablet 10 mg PO DAILY PRN allergy 03/31/21 04/09/22 symptoms #90 tabs labetalol 100 mg tablet 100 mg PO BID #60 tabs 07/18/21 04/09/22 folic acid 400 mcg tablet 400 mcg PO DAILY 10/30/21 04/09/22 abldfesj-jrf-Qb-FA 1 mg 1 tab PO DAILY 10/30/21 04/09/22 tablet Previous Rx's Medication Instructions Recorded fluticasone propionate 50 1 spray NS BID PRN allergy 12/16/19 mcg/actuation nasal symptoms #47.4 mL spray,suspension loratadine 10 mg tablet 10 mg PO DAILY PRN allergy 03/31/21 symptoms #90 tabs labetalol 100 mg tablet 100 mg PO BID #60 tabs 07/18/21 Allergies Allergy/AdvReac Type Severity Reaction Status Date / Time metformin Allergy Severe Verified 10/30/21 15:07 lisinopril AdvReac Intermediate Tingly lips Verified 10/30/21 15:07 General Stated Complaint: Orthopedic JASBIR: 4 Review of Systems Constitutional Constitutional: Denies weakness Musculoskeletal Musculoskeletal: Denies arthralgias, Denies numbness, Reports stiffness and Denies tingling Integumentary/Breasts Skin/Breast: Denies erythema Neurologic Neurologic: Denies numbness, Denies tingling and Denies weakness PFSH All Active Problems (Updated 04/09/22 @ 19:29 by REESE Burkett) Contusion of foot, right (Acute) Amenorrhea (Acute) (Acute) Fatigue (Acute) Hepatosplenomegaly (Acute) Abdominal pain (Acute) Back pain (Acute) Foot pain (Acute) Annual physical exam (Acute) Bilateral kidney stones (Acute) Marfanoid habitus (Acute) borderline ascending aorta Hypertension (Chronic) Diabetes mellitus (Chronic) Ocular rosacea (Acute) Fatigue (Acute 12/22/12) Breast cyst (Acute) Annual physical exam (Acute 01/28/18) Hypermobility syndrome (Chronic) HYPERMOBILITY OF MULTIPLE JTS; 05/27 ECHO: NEG MARFAN'S Increased BMI (Chronic) 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) L5S1 VACUUM DISC PCOS (polycystic ovarian syndrome) (Chronic 10/08/17) Medical History Acne (09/17/16) Chapped lips Chest pain Cystitis Disorder of gallbladder (05/15/12) Dysfunctional uterine bleeding Elevated blood pressure reading Female infertility Hydronephrosis Infection due to Leah albicans (11/09/14) Mouth ulceration (04/02/14) Pain of left calf (01/21/17) PCOS (polycystic ovarian syndrome) Staphylococcus infection (08/13/16) Stomatitis Stomatitis (05/05/14) Surgical History Appendectomy (~1999) Biopsy, Soft Tissue (10/18/17) skin of scalp - follicular cyst excision sebaceous cyst on scalp x2 (03/06/18) History of appendectomy History of umbilical hernia repair (04/27/16) Kidney Stone Extraction 06/07/16;DR. SANABRI[place] Repair of umbilical hernia (04/27/16) Family History Mother Heart disease Myocardial infarction FAMILY HISTORY Diabetes Lung cancer Paternal Grandfather Epilepsy Maternal Aunt Heart disease Maternal Aunt Heart disease Father Diabetes Stroke Heart disease Depression Sister No problems noted. Brother Essential hypertension Brother No problems noted. Son No problems noted. Son No problems noted. Son Marfan syndrome Maternal Grandfather No problems noted. Maternal Grandmother No problems noted. Paternal Grandmother No problems noted. Social History Smoking/Tobacco Use Status: Never Second Hand Exposure: No Smoking risk assessment performed?: Yes Alcohol Intake: current Alcohol Intake frequency: a few times a month Alcohol type: wine Drug use: Never Substance use type: does not use Caregiver/Support person: Yes Household members: spouse and children Housing: house Communication Needs: None Do you need help understanding health information?: Never Pets and animals: Yes Pets and animals: dog(s) Sexually active: Yes Do you think of yourself as: straight/heterosexual Current gender identity: female What is your relationship status?: How often do you talk on the phone with friends or family?: once per week How often do you get together with friends or relatives?: never How often do you attend faith or orthodoxy services?: 1-3 times per year Do you belong to any clubs or organized social groups?: no Panel score (0-1 are the most socially isolated patients): 1 What type of physical activity do you participate in: weight lifting and other Details: Cardio Duration: 30-45 minutes/day Frequency: 5-6 times per week Naty/Anabaptist: Yarsani Special naty needs: No Seatbelt use: always Helmet use: Yes Helmet use: always Drive intox or ride w/intox 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 Do you feel safe at home: Yes Do you feel safe in your relationship?: Yes Exam Const General: cooperative, healthy appearing, comfortable and no acute distress Orientation: alert and awake [facility] Head: normal to inspection, normocephalic and atraumatic Eyes Conjunctivae: conjunctivae normal Neck Neck: normal visual inspection, trachea midline and supple Resp Effort & Inspection: normal respiratory effort and able to speak in complete sentences Cardio Rate: regular rate Rhythm: regular rhythm Skin General skin exam: no rashes or lesions noted Neuro General: patient alert, patient awake, moves all extremities and no focal motor deficits Cognition: normal cognition Speech: speech normal Gait: antalgic Motor: muscle tone normal throughout Sensory Exam: no sensory deficits noted Extrem General: full ROM and capillary refill normal Ankle/foot/toe images: 1. Contusion. Skin intact. No deformity. Neuro, vascular, tendon intact. Diffuse discomfort Psych Appearance: grossly normal Mental Status: mental status grossly normal Course Vital Signs Vital signs: Vital Signs Temperature 36.2 C L 04/09/22 18:41 Pulse 84 04/09/22 18:41 Respiratory Rate 18 04/09/22 18:41 Blood Pressure 172/87 H 04/09/22 18:41 Pulse Oximetry 97 04/09/22 18:41 Temperature 36.2 C L 04/09/22 18:41 Temperature Source Temporal Artery Scan 04/09/22 18:41 Pulse 84 04/09/22 18:41 Respiratory Rate 18 04/09/22 18:41 Respiratory Effort 04/09/22 18:45 Blood Pressure 172/87 H 04/09/22 18:41 Blood Pressure Position Sitting 04/09/22 18:41 Pulse Oximetry 97 04/09/22 18:41 Oxygen Delivery Method Room Air 04/09/22 18:41 Oxygen Flow Rate 0 04/09/22 18:41 Pain Level 8 04/09/22 18:47
== END 2022-04-09 19:39 | disposition home or self-care (01) ==
PROVIDERS: Emergency Provider Physician Assistant; PCP Family Medicine
DX: S90.31XA Contusion of right foot, initial encounter (principal); X58.XXXA Exposure to other specified factors, initial encounter
CPT/HCPCS: 99283; 73630; 99282

== ENCOUNTER 2022-05-29 09:45 | Outpatient (REF) | payer BC, SELFPAY ==
--- NOTE | 2022-05-29 08:30 | PAPFT_PTH ---
PATIENT: Rhiannon Mckeon LOC: [facility]#:[id number] AGE/SX: 41/F ROOM: RE05/29/[address]: Katelynn Michael MD, [place] : 1980 BED: DIS: 05/29/2022 SPEC #: [id number] RECD: 05/29/22 12:49 STATUS: ZEHRA REImelda #: [id number] GREG: 05/29/22 08:[address]: Katelynn Michael DEPT: [facility] Cytology RECD BY: Debbi Vogel Tissues: 1 - CX/ENDOCX FOR PAP SMEARS Procedures: PAP THIN PREP/UVM Screening HPV DNA PROBE Comments: [id number]
== END 2022-05-29 09:46 | disposition home or self-care (01) ==
LOC: LBN 09:45
PROVIDERS: PCP Family Medicine; Visit Provider Family Medicine
DX: Z12.4 Encounter for screening for malignant neoplasm of cervix (principal); Z11.51 Encounter for screening for human papillomavirus (HPV)
CPT/HCPCS: 88142; 87624

== ENCOUNTER 2022-06-13 03:18 | Outpatient (CLI) | payer BC, SELFPAY ==
[2022-06-13 07:50] LABS: Calculated LDL 102 mg/dL (<100); Cholesterol 177 mg/dL (<200); HDL Cholesterol 43 mg/dL (40-60); Triglyceride 163 mg/dL (<150)
[2022-06-13 08:26] LABS: Hemoglobin A1C 6.2 % (<5.7)
[2022-06-14 09:36] LABS: LH 9.8 mIU/mL (See Note)
[2022-06-14 09:41] LABS: Prolactin 11.9 ng/mL (See Note)
[2022-06-19 00:33] LABS: 17-Hydroxyprogesterone 51 ng/dL
== END 2022-06-13 03:19 | disposition home or self-care (01) ==
LOC: LBO 03:20
PROVIDERS: PCP Family Medicine; Visit Provider Family Medicine
DX: Z00.00 Encounter for general adult medical examination without abnormal findings (principal); E11.9 Type 2 diabetes mellitus without complications; E28.2 Polycystic ovarian syndrome; N91.2 Amenorrhea, unspecified
CPT/HCPCS: 36415; 80061; 83001; 83002; 83036; 83498; 84146; 84443

== ENCOUNTER → 2022-06-27 02:14 | Outpatient (CLI) | payer BC, SELFPAY ==
--- NOTE | 2022-06-27 08:15 | DI.MAMMO_ITS ---
Exam(s) MAMMO SCREENING EXAM: MAMMO SCREENING CLINICAL HISTORY: screening,Z12.39 TECHNIQUE: Mammograms were interpreted according to the usual protocol including computer analysis w [employer] CAD system, tomosynthesis and C-view imaging. COMPARISON: FINDINGS: The breasts are of moderate density with fairly symmetrical distribution of fibroglandular tissue. N o dominant mass or clumped microcalcification is identified in either breast. Today's examination is a baseline examination. There is an area of asymmetric density with a vaguely masslike appearance projected superiorly in the left breast on view, this probably lies laterally an d posteriorly in left breast on CC view. Additional mammographic views are requested to include CC a nd MLO spot compression views of the left breast. No other suspicious findings. IMPRESSION: Additional mammographic views of the left breast are requested as described above. Breast ultrasound may be indicated as well depending on the results of the additional mammographic views. BI-RADS Category 0 - Assessment Incomplete: Need additional imaging evaluation Breast Density - Category B - Scattered areas of fibroglandular density
== END ==
PROVIDERS: PCP Family Medicine; Visit Provider Family Medicine
DX: Z12.31 Encounter for screening mammogram for malignant neoplasm of breast (principal); R92.8 Other abnormal and inconclusive findings on diagnostic imaging of breast
CPT/HCPCS: 77063; 77067

== ENCOUNTER → 2022-07-06 00:28 | Outpatient (CLI) | payer BC, SELFPAY ==
--- NOTE | 2022-07-06 | DI.US_ITS ---
Exam(s) MAMMO SCREEN CALL BACK UNI US BREAST LT COMPLETE EXAM: MAMMO SCREEN CALL BACK UNI -LEFT AND COMPLETE LEFT BREAST ULTRASOUND CLINICAL HISTORY: F/U MAMMO, R92.8,AREA OF ASYMMETRIC DENSITY WITH MASS LIKE APPEARANCE LT. TECHNIQUE: Unilateral spot mammographic images obtained with 3D tomosynthesisand utilizing computer aided detection (CAD). . Complete LEFT breast Ultrasound was also performed, including all 4 quadrants, the retroareolar regio n, and the ipsilateral axilla. COMPARISON: Prior mammograms were reviewed. This additional imaging was performed due to findings described on the recent BASELINE screening mammogram of 06/27/2022. FINDINGS: DIAGNOSTIC MAMMOGRAM: Additional mammographic views performed todayrender this area in the left breast somewhat less concer tristen. COMPLETE LEFT BREAST ULTRASOUND: Ultrasound performed today reveals no evidence of solid or significant cystic lesions in all 4 quadra nts nor in the retroareolar region.. Scanning of the ipsilateral axilla reveals no significant adenopathy. IMPRESSION: 1. Benign-appearing findings. 2. Negative complete left breast ultrasound. Appropriate follow-up as discussed by myself with the patient today is repeat left breast mammogram i n 6 months to ensure stability.. The patient was informed of these findings and recommendations by myself prior to leaving the departm ent today. BI-RADS Category 3 - 6 month - Probably Benign Finding: Recommend follow-up mammography in 6 months Breast Density - Category B - Scattered areas of fibroglandular density Breast density Category C or D implies that the patient has dense breast tissue. Dense breast tissue can make it harder to find cancer on a mammogram. Dense breast tissue is also associated with an incr eased risk of breast cancer. This information about the result of the mammogram report was provided to the patient to raise their awareness. Use this report when you speak with the patient about their risks for breast cancer, which includes their family history. At that time, you may recommend additional screening tests (Ultrasoun d or MRI) as these tests may add significant information. A negative radiographic report should not delay biopsy if a dominant or clinically suspicious mass is present. Up to ten percent of cancers are not identified on mammography. A negative report may reinforce clinical impression. Adenosis and dense breasts may obscure an underlying neoplasm. False positive reports average 6 to 10%. Patient will receive a letter notifying them of these results.
== END ==
PROVIDERS: PCP Family Medicine; Visit Provider Family Medicine
DX: Z12.31 Encounter for screening mammogram for malignant neoplasm of breast (principal); R92.8 Other abnormal and inconclusive findings on diagnostic imaging of breast; N64.59 Other signs and symptoms in breast
CPT/HCPCS: 76642; 77063; 77067

== ENCOUNTER 2022-11-12 08:09 | Day surgery (SDC) | payer BC, SELFPAY ==
[2022-11-12] VITALS (12 sets, daily range): BP systolic 148–163; BP diastolic 76–105; PULSE 64–85; RESP 16–24; TEMP 36.2–37; O2SAT 94–99; BMI 36.7
--- NOTE | 2022-11-12 08:48 | ANES.PREOP_ITS ---
General Info Date of Service Date Performed: 11/12/22 Height: 5 ft 11 in Weight: 119.4 kg Body Mass Index (BMI): 36.7 Surgical Procedure: Operation Date: 11/12/22 09:40 Proposed Procedure Side Surgeon p Cystoscopy/Left Retrograde Pyelogram/Left Ureteroscopy, stone manipulation/? stent Left Sridhar Garcia MD Meds Allergies and Home Medications Allergies Allergy/AdvReac Type Severity Reaction Status Date / Time metformin Allergy Severe Verified 11/09/22 14:36 lisinopril AdvReac Intermediate Tingly lips Verified 11/09/22 14:36 Home Medication Medication Instructions Recorded fluticasone propionate 50 1 spray NS BID PRN allergy 12/16/19 mcg/actuation nasal symptoms #47.4 mL spray,suspension cholecalciferol (vitamin D3) 125 250 mcg PO DAILY 01/26/20 mcg (5,000 unit) capsule loratadine 10 mg tablet 10 mg PO DAILY PRN allergy 04/16/22 symptoms #90 tabs hydrochlorothiazide 25 mg tablet 25 mg PO QAM #90 tabs 05/29/22 metoprolol succinate 50 mg 50 mg PO DAILY #90 tabs 05/29/22 tablet,extended release 24 hr losartan 50 mg tablet 50 mg PO DAILY #90 tabs 09/18/22 nystatin 100,000 unit/mL oral 500,000 unit (5 mL) buccal QID 09/18/22 suspension #480 mL multivitamin 1 tab PO DAILY 11/09/22 Current Visit Medications: Current Medications Generic Name Dose Route Start Last Admin Trade Name Freq PRN Reason Stop Dose Admin Ringer's Solution 1,000 mls @ 80 mls/hr 11/12/22 06:00 IV 12/09/22 23:59 INFUSION WM Cefazolin Sodium/Dextrose 2 gm in 50 mls @ 100 mls/hr 11/12/22 06:00 Ancef Duplex IVPB 12/09/22 23:59 PREOP WM IV Miscellaneous Supplies 1 each 11/12/22 06:00 Iv Access IV 12/09/22 23:59 DIRECTED WM Sodium Chloride 0 ml 11/12/22 06:00 Normal Saline Flush 10 Ml Syr IV 12/09/22 23:59 PRN PRN Sodium Chloride 0 ml 11/12/22 06:00 Normal Saline 10 Ml Vial IJ 12/09/22 23:59 DIRECTED PRN Sterile Water 0 ml 11/12/22 06:00 Water,Injection,Sterile 10 Ml Vial IJ 12/09/22 23:59 DIRECTED PRN PFSH Active Problems Active Problems: Problem Status Onset Code Family history of polyps in the colon Z83.71 Screening for colon cancer Z12.11 Sterilization consult Z30.09 Achilles bursitis M76.60 Amenorrhea N91.2 Z34.90 Fatigue R53.83 Hepatosplenomegaly R16.2 Abdominal pain R10.9 Back pain M54.9 Foot pain M79.673 Annual physical exam Z00.00 Bilateral kidney stones 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 Hypertension I10 Diabetes mellitus E11.9 Ocular rosacea Fatigue 12/22/12 R53.83 Breast cyst Annual physical exam 01/28/18 Z00.00 Hypermobility syndrome M35.7 Increased BMI R63.8 Lumbago of lumbar region with sciatica M54.40 PCOS (polycystic ovarian syndrome) 10/08/17 E28.2 Medical History Medical History Acne (09/17/16) Chapped lips Chest pain Cystitis Disorder of gallbladder (05/15/12) Dysfunctional uterine bleeding Elevated blood pressure reading Female infertility Hydronephrosis Infection due to Leah albicans (11/09/14) Mouth ulceration (04/02/14) Pain of left calf (01/21/17) PCOS (polycystic ovarian syndrome) Staphylococcus infection (08/13/16) Stomatitis Stomatitis (05/05/14) Surgical History Surgical History Appendectomy (~1999) Biopsy, Soft Tissue (10/18/17) skin of scalp - follicular cyst excision sebaceous cyst on scalp x2 (03/06/18) History of appendectomy History of umbilical hernia repair (04/27/16) Kidney Stone Extraction 06/07/16;DR. GARCIA Repair of umbilical hernia (04/27/16) Tobacco Smoking/Tobacco Use Status: Never Passive smoking exposure: No Second hand exposure: No Alcohol Alcohol Intake: current Alcohol intake frequency: a few times a month Alcohol type: wine Substance Use Substance use: Never Substance use type: does not use Vital Signs and Lab Results Vital Signs Most Recent Vital Signs in EMR: Most Recent Vital Signs Temp Pulse Resp BP Pulse Ox 36.6 C 85 16 148/92 H 99 11/12/22 08:34 11/12/22 08:34 11/12/22 08:34 11/12/22 08:34 11/12/22 08:34 Point of Care Results Point of Care Results: POC- Test(urine) Negative 11/12/22 08:34 Finger Stick Blood Glucose 136 11/12/22 08:45 Lab Results Blood Type / Crossmatch: No Data to Display Complete Blood Count: No Data to Display Complete Metabolic Panel: No Data to Display Liver Function Panel: No Data to Display Coagulation Panel: No Data to Display Cardiac Panel: No Data to Display Arterial Blood Gas: No Data to Display Venous Blood Gas: No Data to Display Pancreas Panel: No Data to Display Thyroid Panel: No Data to Display Infectious Disease: No Data to Display Blood Cultures: No Data to Display Toxicology Panel: No Data to Display Panel: No Data to Display Imaging and Studies Imaging and Studies Study information below may be from another EMR and interpreted by another provider. Please see original notes in EMR for more complete details. Stress Test Summary: Date of study: 10/27/2018 *PATIENT PRESENTATION* Height: 180.3cm (71in) Blood Pressure: Weight: 99.5kg (219lb) BSA: 2.26m^2 Referring physician: Katelynn Michael Ordering physician: Katelynn Michael Impressions: - Normal study after maximal exercise. - Pt with typical CP with exertio Echocardiogram Summary: Patient Name: HALLIE VICK #: [id number]: DI Ordering Provider: Katelynn Michael M.D., DCAccount #: [id number]: DONTE JOEL Primary Care Provider: Katelynn Michael M.D., DCDate of Exam: 06/14/20ex: F Admission Date: 06/14/20 : 1980 Age: 39 Exam(s) a US:US echocardiogram APPROVED REPORT EXAM: Comprehensive 2D, Doppler, and color-flow Echocardiogram Patient Location: Out-Patient [facility] Tender: Katia Noguera RDCS (AE) Indications: Marfanoid Habitus Other Information Study Quality: Adequate Conclusion Normal left ventricular wall thickness, chamber size, and systolic function. Estimated ejection fraction is 60%. There are no segmental wall motion abnormalities Normal right ventricular size and systolic function Both atria are normal in size The aortic valve is structurally normal, trileaflet, without stenosis or regurgitation The mitral valve is structurally normal. There is no mitral valve prolapse. Trace mitral regurgitation The tricuspid valve is structurally normal with trace regurgitation. Normal estimated right ventricular systolic pressure The pulmonic valve is structurally normal with trace physiologic regurgitation Borderline dilated ascending aorta, 3.23 cm Anesthesia Assessment and Plan Anesthesia History Personal History: PONV Family History: No Family History of Anesthesia Complications Exercise Tolerance Exercise Tolerance: Metabolic Equivalents>4 Pertinent Negatives Pertinent Negatives: No Symptoms of GERD, No Major Cardiovascular Symptoms or Complaints and No Major Pulmonary Symptoms or Complaints Cardiac & Pulmonary Exam Cardiac Exam: Normal S1/S2 Heart Sounds Pulmonary Exam: Clear Bilateral Breath Sounds Implantable Cardiac Device Does patient have a Pacemaker or an ICD?: No Airway Exam Known Difficult Airway: No Mallampati Class: 3 Mouth Opening: Normal (> 3cm) Thyromental Distance: Greater than 3 cm Neck Range of Motion: Full ROM Neck Circumference: Normal Teeth Condition: Normal Dentition ASA Classification ASA Score: ASA 2 Emergency Case?: No NPO Status NPO Status: NPO Clears >2 hours, Solids >8 hours Status Status: Negative HCG Anesthesia Plan Resuscitation Status: Full Code Anesthesia Technique: General Anesthesia Airway Planned: LMA Monitors Used: Standard Monitors
[2022-11-12] MEDS: Lactated Ringers 1,000 ML 80 ML IV (09:07)
--- NOTE | 2022-11-12 09:08 | HPE_ITS ---
Date of service: 11/12/22 Time of Service: 09:08 Assessment and Plan Assessment and plan (1) Bilateral kidney stones: Status: Acute Assessment and plan: While she has bilateral kidney stones, her larger stone burden is on the left. We will plan to do a cystoscopy, left retrograde pyelogram and left flexible ureteroscopy. We will utilize the holmium laser to fragment her stones. We may need to place a ureteral stent and use a staged approach given the stone burden. History of Present Illness History of Present Illness Chief Complaint: Bilateral kidney stones Narrative: This is a 42-year-old woman who has a history of calcium phosphate stones. She has previously passed stones but has required ureteroscopy for the left-sided stones as well. We have been monitoring her with renal ultrasounds periodically. She has been having no flank pain, but has had some lower urinary tract symptoms changes including urinary frequency and urgency. She will have some bilateral flank discomfort just when she voids. Her change in symptoms prompted a repeat renal ultrasound. She was found to have enlarging stone burden bilaterally with the largest stone burden on the left. She had no hydronephrosis. She is agreeable to ureteroscopy and treatment of her left-sided kidney stones. Review of Systems Narrative: No fevers or chills No vision change or dysphasia Hx Diabetes. No thyroid dysfunction No shortness of breath, cough or hemoptysis No chest pain or palpitations No nausea, vomiting, hepatitis, ulcers, jaundice No seizures, strokes or peripheral neuropathy No bleeding disorders or anemia No gout PFSH All Active Problems Family history of polyps in the colon (Acute) 4 polyps found at 73yoa in dad (1st colonoscopy). 1 >1cm with villous features and high dysplasia Screening for colon cancer (Acute) Sterilization consult (Acute) Achilles bursitis (Acute) Amenorrhea (Acute) (Acute) Fatigue (Acute) Hepatosplenomegaly (Acute) Abdominal pain (Acute) Back pain (Acute) Foot pain (Acute) Annual physical exam (Acute) Bilateral kidney stones (Acute) Marfanoid habitus (Acute) borderline ascending aorta Hypertension (Chronic) Diabetes mellitus (Chronic) Ocular rosacea (Acute) Fatigue (Acute 12/22/12) Breast cyst (Acute) Annual physical exam (Acute 01/28/18) Hypermobility syndrome (Chronic) HYPERMOBILITY OF MULTIPLE JTS; 05/27 ECHO: NEG MARFAN'S Increased BMI (Chronic) 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) L5S1 VACUUM DISC PCOS (polycystic ovarian syndrome) (Chronic 10/08/17) Medical History Acne (09/17/16) Chapped lips Chest pain Cystitis Disorder of gallbladder (05/15/12) Dysfunctional uterine bleeding Elevated blood pressure reading Female infertility Hydronephrosis Infection due to Leah albicans (11/09/14) Mouth ulceration (04/02/14) Pain of left calf (01/21/17) PCOS (polycystic ovarian syndrome) Staphylococcus infection (08/13/16) Stomatitis Stomatitis (05/05/14) Surgical History (Updated 11/12/22 @ 09:36 by Sridhar Garcia MD) Appendectomy (~1999) Biopsy, Soft Tissue (10/18/17) skin of scalp - follicular cyst excision sebaceous cyst on scalp x2 (03/06/18) History of appendectomy History of cholecystectomy History of umbilical hernia repair (04/27/16) Kidney Stone Extraction 06/07/16;DR. GARCIA Repair of umbilical hernia (04/27/16) Family History Mother Heart disease Myocardial infarction FAMILY HISTORY Diabetes Lung cancer Paternal Grandfather Epilepsy Maternal Aunt Heart disease Maternal Aunt Heart disease Father Diabetes Stroke Heart disease Depression Colon polyp Sister No problems noted. Brother Essential hypertension Brother No problems noted. Son No problems noted. Son No problems noted. Son Marfan syndrome Maternal Grandfather No problems noted. Maternal Grandmother No problems noted. Paternal Grandmother No problems noted. Social History Smoking/Tobacco Use Status: Never Second Hand Exposure: No Smoking risk assessment performed?: Yes Alcohol Intake: current Alcohol Intake frequency: a few times a month Alcohol type: wine Drug use: Never Substance use type: does not use Caregiver/Support person: Yes Household members: spouse and children Housing: house Communication Needs: None Do you need help understanding health information?: Never Pets and animals: No Sexually active: Yes Do you think of yourself as: straight/heterosexual Current gender identity: female What is your relationship status?: How often do you talk on the phone with friends or family?: once per week How often do you get together with friends or relatives?: once per week How often do you attend pentecostal or adventism services?: 1-3 times per year Do you belong to any clubs or organized social groups?: yes Panel score (0-1 are the most socially isolated patients): 2 What type of physical activity do you participate in: walking Duration: < 15 minutes/day Frequency: 3-4 times per week Naty/Protestant: Worship Special naty needs: No Seatbelt use: always Helmet use: Yes Helmet use: always Drive intox or ride w/intox auto transport driver: No Do you feel safe at home: Yes Do you feel safe in your relationship?: Yes Meds Allergies and Home Medications Allergies Allergy/AdvReac Type Severity Reaction Status Date / Time metformin Allergy Severe Verified 11/09/22 14:36 lisinopril AdvReac Intermediate Tingly lips Verified 11/09/22 14:36 Home Medications Medication Instructions Recorded Confirmed Type fluticasone propionate 50 1 spray NS BID PRN allergy 12/16/19 11/12/22 Rx mcg/actuation nasal symptoms #47.4 mL spray,suspension cholecalciferol (vitamin D3) 125 250 mcg PO DAILY 01/26/20 09/18/22 History mcg (5,000 unit) capsule loratadine 10 mg tablet 10 mg PO DAILY PRN allergy 04/16/22 11/12/22 Rx symptoms #90 tabs hydrochlorothiazide 25 mg tablet 25 mg PO QAM #90 tabs 05/29/22 09/18/22 Rx metoprolol succinate 50 mg 50 mg PO DAILY #90 tabs 05/29/22 11/12/22 Rx tablet,extended release 24 hr losartan 50 mg tablet 50 mg PO DAILY #90 tabs 09/18/22 09/18/22 Rx nystatin 100,000 unit/mL oral 500,000 unit (5 mL) buccal QID 09/18/22 11/12/22 Rx suspension #480 mL multivitamin 1 tab PO DAILY 11/09/22 11/12/22 History Exam Const General: cooperative and comfortable Neck Neck: supple Resp Effort & Inspection: normal respiratory effort Auscultation: clear to auscultation bilaterally Cardio Rate: regular rate Rhythm: regular rhythm GI Palpation: soft and no masses Neuro General: patient alert, patient awake and patient oriented x3 Results Last Vital Signs Temp 36.6 C 11/12/22 08:34 Pulse 85 11/12/22 08:34 Resp 16 11/12/22 08:34 BP 148/92 H 11/12/22 08:34 Pulse Ox 99 11/12/22 08:34 Time Spent Time spent with Patient: <40 minutes Time was spent: other
[2022-11-12] MEDS: ceFAZolin 2 GM/50 ML BAG IVPB (09:48)
[2022-11-12] MEDS: Lidocaine 2% Jelly 6 ML SYR (10:47)
[2022-11-12] MEDS: Omnipaque 300 MG/ML 50 ML BTL (11:36)
--- NOTE | 2022-11-12 11:46 | W.PM.DSUDISC ---
Date of service: 11/12/22 Time of Service: 11:46 Discharge Plan Disposition Condition: Stable Discharge Details Attending Provider: Sridhar Garcia Primary Care Provider: Katelynn Michael Home Meds and New Rx's Prescriptions: New tramadol 50 mg tablet 50 mg PO Q6H PRN (Reason: pain) Qty: 20 0RF Rx Instructions: may take along with tylenol and ibuprofen No Action cholecalciferol (vitamin D3) 125 mcg (5,000 unit) capsule 250 mcg PO DAILY hydrochlorothiazide 25 mg tablet 25 mg PO QAM Qty: 90 4RF metoprolol succinate 50 mg tablet extended release 24 hr 50 mg PO DAILY Qty: 90 4RF losartan 50 mg tablet 50 mg PO DAILY Qty: 90 4RF Patient Comments: pt states she has not taken for over a week per MD due to side effects. nystatin 100,000 unit/mL suspension 500,000 unit buccal QID Qty: 480 0RF Rx Instructions: administer 1/2 of dose in each side of the mouth, hold in mouth as long as possible, then spit fluticasone propionate 50 mcg/actuation spray,suspension 1 spray NS BID PRN (Reason: allergy symptoms) Qty: 47.4 4RF loratadine 10 mg tablet 10 mg PO DAILY PRN (Reason: allergy symptoms) Qty: 90 3RF multivitamin Tablet 1 tab PO DAILY Discharge Instructions Additional Instructions: no need to strain urine followup in office @ 2 to 3 weeks for cystoscopy with stent removal blood in urine is not unexpected while stent is in place Activity:: Activity as Tolerated Shower/Bathe:: 24 hours Diet:: As Tolerated DS: Diagnosis Discharge Diagnosis (1) Bilateral kidney stones: Status: Acute
--- NOTE | 2022-11-12 11:50 | DI.RAD_ITS ---
Exam(s) XR RETROGRADE IN OR EXAM: XR RETROGRADE IN OR CLINICAL HISTORY: retrograde/stone manip TECHNIQUE: 2D and realtime digital imaging was performed. CONTRAST MATERIAL: Refer to procedure report. COMPARISON: US US RENAL from 08/13/2022 FINDINGS: Fluoroscopy was provided for Dr. Garcia during the performance of a retrograde evaluation of the elisabet l collecting system. Please refer to the procedure report for complete details. Ka,r=36.6 mGy IMPRESSION: RADIATION DOSE DELIVERED:
--- NOTE | 2022-11-12 12:01 | W.PM.OP ---
Date of service: 11/12/22 Time of Service: 12:01 Operative Note Operative Note DATE OF PROCEDURE: 11/12/22 PRE-OP DIAGNOSIS: Bilateral kidney stones POST-OP DIAGNOSIS: same PROCEDURE: cystoscopy, left retrograde pyelogram, left flexible ureteroscopy with holmium laser lithotripsy and stone fragment extraction, insert left ureteral stent SURGEON: Sridhar Garcia ANESTHESIA TYPE: Local By Surgeon and General LMA/ETT Refer to Anesthesia Record ESTIMATED BLOOD LOSS: 25 PATHOLOGY: other (stones for chemical analysis) COMPLICATIONS: None Patient was transported to: PACU Patient's condition: stable Implants: 6 Kazakh by 22 to 30 cm left ureteral stent Indications: This is a 42-year-old woman who has a history of calcium phosphate stones. She required ureteroscopic treatment of the left-sided stones about 5 years ago. She is known to have bilateral nonobstructing stones and we had been following her with renal ultrasounds. On her most recent ultrasound, we found that her stone burden had increased significantly. She was starting to have some discomfort up in the flank area when she would void. Her stone burden is higher on the left side, so she is agreeable now to ureteroscopy with holmium laser lithotripsy of her left-sided stones. She understands that she may need treatment to the right side at another date. Findings: Multiple large stones in calyces Procedure Description: The patient was given preoperative antibiotics and brought to the operating room on 11/12/2022. After successful induction of general anesthesia, she was placed in dorsal lithotomy position. Her genitalia was prepped and draped. 2% Xylocaine jelly was instilled into the urethra to act as a local anesthetic. A 22 Kazakh rigid cystoscope was passed through the urethra into the bladder. The bladder was inspected using a 30 degree lens. The left ureteral orifice was visualized and was cannulated with a 6 Kazakh access catheter. The catheter was advanced to the upper ureter and a retrograde pyelogram was obtained by injecting Omnipaque through the access catheter under fluoroscopic guidance. The retrograde pyelogram allowed us to outline the calyces and to visualize filling defects in the upper, mid and lower calyces. We then passed a guidewire through the lumen of the access catheter and removed the catheter. A dual-lumen catheter was advanced and a second wire was positioned. We chose one of the wires as a working wire and the other as a safety wire. A ureteral access sheath was advanced over the working wire and the tip of the access sheath was positioned in the proximal ureter. We then performed flexible ureteroscopy and inspected each of the calyces. We began in the upper pole and found a large stone present. The stone was treated with a 272 ?m holmium laser fiber. We used a power setting of 0.8 and a rate of 8. We were able to fragment the stone quite nicely. Some of the larger fragments were grasped in a 0 tip stone basket and removed. The stones that were removed were sent to pathology for chemical analysis. In the mid pole calyces, to the calyces had a large stones present. Again, these were treated with the holmium laser and any residual large stone fragments were extracted. In the lower pole calyx, another large stone was seen and was treated with a holmium laser. At the completion of our treatment, each of the multiple stone fragments that were still present with thought to be small enough to pass if they move spontaneously. Because of the amount of stone and the trauma associated with the procedure, we elected to place a ureteral stent. I chose a 6 Kazakh variable length stent and advanced it over the safety wire. The proximal end of the stent was curled in the renal pelvis and the distal end was curled in the bladder. The positioning of the stent was confirmed both fluoroscopically and cystoscopically. The patient tolerated this procedure well with no complications. She was taken to the recovery room in stable condition.
[2022-11-12] MEDS: fentaNYL 100 MCG/2 ML VIAL IVP (12:26)
[2022-11-12] MEDS: Droperidol 5 MG/2 ML VIAL 0.625 MG IVP ×2 (12:55→13:10)
--- NOTE | 2022-11-12 13:27 | W.ANESPOSTOP ---
Postoperative Evaluation Date, Time and Location Date Performed: 11/12/22 Time Performed: 13:15 Patient Location: PACU Vital Signs Most Recent Imported Vital Signs: Most Recent Vital Signs Temp Pulse Resp BP Pulse Ox 36.4 C L 64 21 154/93 H 94 11/12/22 13:00 11/12/22 13:00 11/12/22 13:00 11/12/22 13:00 11/12/22 13:00 Pain Score Most Recent Pain Score: Most Recent Pain Score Pain Level 4 11/12/22 13:00 Assessment Mental Status: Awake (Alert & Oriented to Patient Baseline) Airway and Respiratory Function: Patent airway with normal (patient baseline) respiratory exam Cardiovascular Function: Hemodynamically Stable Hydration Status: Adequately Hydrated Nausea & Vomiting: Active Nausea or Vomiting Present Nausea and Vomiting Management: Nausea and vomiting active, being addressed with medication (Nausea is now minimal) Pain: Pain is tolerable per patient Peripheral Nerve Block: Patient did not receive a nerve block
[2022-11-12] MEDS: Phenazopyridine 200 MG TAB PO (13:34)
== END 2022-11-12 14:40 | disposition home or self-care (01) ==
PROVIDERS: PCP Family Medicine; Visit Provider Urology
PROC: (CPT 52356; principal; 2022-11-12 09:30)
DX: N20.0 Calculus of kidney (principal)
CPT/HCPCS: 52356; 81025; 74420; 82365; J0690; J1100; J1790; J1885; J2250; J2405; J3010; Q9967

== ENCOUNTER 2023-01-15 00:36 | Outpatient (CLI) | payer BC, SELFPAY ==
--- NOTE | 2023-01-15 07:15 | DI.MAMMO_ITS ---
Exam(s) MAMMO DIAGNOSTIC UNI EXAM: MAMMO DIAGNOSTIC UNI CLINICAL HISTORY: 3-6 mo f/u ABNL MAMMO, R92.8,Z09 TECHNIQUE: Left cc and MLO mammogram images were performed according to the usual protocol includin g computer analysis with CAD system, tomosynthesis and C-view imaging. COMPARISON: 27 June and 06 July 2022 FINDINGS: The left breast is composed of scattered fibroglandular densities, Breast Density category B. No suspicious masses or suspicious microcalcifications are seen. Previously questioned density in the superior breast is not apparent on the current exam. No skin thickening or abnormal axillary lymph nodes are seen. IMPRESSION: BI-RADS Category 1, Negative mammogram Bilateral screening mammography is recommended, due in 6 months.. Breast Density - Category B, scattered fibroglandular densities. A negative radiographic report should not delay biopsy if a dominant or clinically suspicious mass is present. Up to ten percent of cancers are not identified on mammography. A negative report may reinforce clinical impression. Adenosis and dense breasts may obscure an underlying neoplasm. False positive reports average 6 to 10%. Patient will receive a letter notifying them of these results.
== END 2023-01-15 00:56 ==
LOC: DI 00:36
PROVIDERS: PCP Family Medicine; Visit Provider Family Medicine
DX: Z09 Encounter for follow-up examination after completed treatment for conditions other than malignant neoplasm; R92.8 Other abnormal and inconclusive findings on diagnostic imaging of breast
CPT/HCPCS: 77061; 77065; G0279

== ENCOUNTER 2023-03-07 06:13 | Day surgery (SDC) | payer BC, SELFPAY ==
[2023-03-07] VITALS (9 sets, daily range): BP systolic 136–158; BP diastolic 76–98; PULSE 69–83; RESP 16–21; TEMP 36.2–36.7; O2SAT 95–99; BMI 36.6
--- NOTE | 2023-03-07 06:46 | HPE_ITS ---
Date of service: 03/07/23 Time of Service: 06:46 Assessment and Plan Assessment and plan (1) Kidney stones: Status: Chronic Assessment and plan: Having already addressed her left kidney stones, we will move forward with right ureteroscopy and holmium laser lithotripsy of her right sided stones. History of Present Illness History of Present Illness Chief Complaint: Right Kidney stones Narrative: This is a 42-year-old woman who has a history of bilateral kidney stones. We had done ureteroscopy and holmium laser lithotripsy of her left stones when they seem to be increasing in size and causing more symptoms. She has recovered well from her left-sided surgery. She presents for similar procedure on the right side. She is not having any fevers or chills. She has no gross hematuria. Review of Systems Narrative: No fevers or chills Seasonal allergies. No vision change or dysphasia No thyroid dysfunction No shortness of breath, cough or hemoptysis No chest pain or palpitations No hepatitis, ulcers, jaundice No seizures, strokes or peripheral neuropathy No bleeding disorders or anemia No gout PFSH All Active Problems Kidney stones (Chronic) Family history of polyps in the colon (Acute) 4 polyps found at 73yoa in dad (1st colonoscopy). 1 >1cm with villous features and high dysplasia Screening for colon cancer (Acute) Sterilization consult (Acute) Achilles bursitis (Acute) Amenorrhea (Acute) (Acute) Fatigue (Acute) Hepatosplenomegaly (Acute) Abdominal pain (Acute) Back pain (Acute) Foot pain (Acute) Annual physical exam (Acute) Bilateral kidney stones (Acute) Marfanoid habitus (Acute) borderline ascending aorta Hypertension (Chronic) Diabetes mellitus (Chronic) Ocular rosacea (Acute) Fatigue (Acute 12/22/12) Breast cyst (Acute) Annual physical exam (Acute 01/28/18) Hypermobility syndrome (Chronic) HYPERMOBILITY OF MULTIPLE JTS; 05/27 ECHO: NEG MARFAN'S Increased BMI (Chronic) 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) L5S1 VACUUM DISC PCOS (polycystic ovarian syndrome) (Chronic 10/08/17) Medical History Acne (09/17/16) Chapped lips Chest pain Cystitis Disorder of gallbladder (05/15/12) Dysfunctional uterine bleeding Elevated blood pressure reading Female infertility Hydronephrosis Infection due to Leah albicans (11/09/14) Mouth ulceration (04/02/14) Pain of left calf (01/21/17) PCOS (polycystic ovarian syndrome) Staphylococcus infection (08/13/16) Stomatitis Stomatitis (05/05/14) Surgical History Appendectomy (~1999) Biopsy, Soft Tissue (10/18/17) skin of scalp - follicular cyst excision sebaceous cyst on scalp x2 (03/06/18) History of appendectomy History of cholecystectomy History of umbilical hernia repair (04/27/16) Kidney Stone Extraction 06/07/16;DR. SANABRIA Repair of umbilical hernia (04/27/16) Family History Mother Heart disease Myocardial infarction FAMILY HISTORY Diabetes Lung cancer Paternal Grandfather Epilepsy Maternal Aunt Heart disease Maternal Aunt Heart disease Father Diabetes Stroke Heart disease Depression Colon polyp Sister No problems noted. Brother Essential hypertension Brother No problems noted. Son No problems noted. Son No problems noted. Son Marfan syndrome Maternal Grandfather No problems noted. Maternal Grandmother No problems noted. Paternal Grandmother No problems noted. Social History Smoking/Tobacco Use Status: Never Second Hand Exposure: No Smoking risk assessment performed?: Yes Alcohol Intake: current Alcohol Intake frequency: a few times a month Alcohol type: wine Drug use: Never Substance use type: does not use Caregiver/Support person: Yes Household members: spouse and children Housing: house Communication Needs: None Do you need help understanding health information?: Never Pets and animals: No Sexually active: Yes Do you think of yourself as: straight/heterosexual Current gender identity: female What is your relationship status?: How often do you talk on the phone with friends or family?: once per week How often do you get together with friends or relatives?: once per week How often do you attend restorationism or confucianism services?: 1-3 times per year Do you belong to any clubs or organized social groups?: yes Panel score (0-1 are the most socially isolated patients): 2 What type of physical activity do you participate in: walking Duration: < 15 minutes/day Frequency: 3-4 times per week Naty/Judaism: Mormon Special naty needs: No Seatbelt use: always Helmet use: Yes Helmet use: always Drive intox or ride w/intox commercial driver's license driver: No Do you feel safe at home: Yes Do you feel safe in your relationship?: Yes Meds Allergies and Home Medications Allergies Allergy/AdvReac Type Severity Reaction Status Date / Time metformin Allergy Severe Per pt Verified 03/07/23 06:23 complete swelling from head to toe rash lisinopril AdvReac Intermediate Tingly lips Verified 03/07/23 06:23 Home Medications Medication Instructions Recorded Confirmed Type fluticasone propionate 50 1 spray NS BID PRN allergy 12/16/19 03/07/23 Rx mcg/actuation nasal symptoms #47.4 mL spray,suspension loratadine 10 mg tablet 10 mg PO DAILY PRN allergy 04/16/22 03/07/23 Rx symptoms #90 tabs hydrochlorothiazide 25 mg tablet 25 mg PO QAM #90 tabs 05/29/22 03/07/23 Rx metoprolol succinate 50 mg 50 mg PO DAILY #90 tabs 05/29/22 03/07/23 Rx tablet,extended release 24 hr multivitamin 1 tab PO DAILY 11/09/22 03/07/23 History Exam Const General: cooperative Neck Neck: supple Resp Effort & Inspection: normal respiratory effort Auscultation: clear to auscultation bilaterally Cardio Rhythm: regular rhythm Heart Sounds: S1 normal GI Palpation: soft and no masses Neuro General: patient alert, patient awake and patient oriented x3 Results Labs Labs: RUN DATE: 03/07/23 PAGE 1 RUN TIME: [id number] RUN USER: [place] [address] Vi Alvarado MD PATIENT REPORT PATIENT: Rhiannon Mckeon LOC: [facility] U #: [id number] /SX: 1980 F ROOM: RE11/12/[address]: ELLY MEZA,[place] STATUS: DEP [facility] [place], [place] BED: DIS: SPEC #: [id number] GREG: 11/12/22-1135 STATUS: COMP REQ #: [id number] RECD: 11/12/[address]: EZRA SANABRIA MD ENTERED: 11/12/[address]: FAX #: ORDERED: Stone Anaylsis QUERIES: Source: Left Renal Test Result Flag Reference Verified Kidney Stone Analysis Source: Left Renal 11/20/22 Interpretation SEE BELOW 11/20/22 RESULT: 100% Calcium phosphate (apatite). 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
[2023-03-07] MEDS: Lactated Ringers 1,000 ML 80 ML IV (07:03)
--- NOTE | 2023-03-07 07:03 | ANES.PREOP_ITS ---
General Info Date of Service Date Performed: 03/14/23 Height: 5 ft 11 in Weight: 119 kg Body Mass Index (BMI): 36.6 Surgical Procedure: Operation Date: 03/07/23 07:40 Proposed Procedure Side Surgeon p Cystoscopy/Laser/Retrograde/Ureteroscopy/Possible Stent Placement Right Sridhar Garcia MD Meds Allergies and Home Medications Allergies Allergy/AdvReac Type Severity Reaction Status Date / Time metformin Allergy Severe Per pt Verified 03/07/23 06:23 complete swelling from head to toe rash lisinopril AdvReac Intermediate Tingly lips Verified 03/07/23 06:23 Home Medication Medication Instructions Recorded fluticasone propionate 50 1 spray NS BID PRN allergy 12/16/19 mcg/actuation nasal symptoms #47.4 mL spray,suspension loratadine 10 mg tablet 10 mg PO DAILY PRN allergy 04/16/22 symptoms #90 tabs hydrochlorothiazide 25 mg tablet 25 mg PO QAM #90 tabs 05/29/22 metoprolol succinate 50 mg 50 mg PO DAILY #90 tabs 05/29/22 tablet,extended release 24 hr multivitamin 1 tab PO DAILY 11/09/22 Current Visit Medications: Current Medications Generic Name Dose Route Start Last Admin Trade Name Freq PRN Reason Stop Dose Admin Ringer's Solution 1,000 mls @ 80 mls/hr 03/07/23 06:00 IV 04/05/23 23:59 INFUSION WM Cefazolin Sodium/Dextrose 2 gm in 50 mls @ 100 mls/hr 03/07/23 06:00 Ancef Duplex IVPB 03/07/23 16:00 PREOP WM IV Miscellaneous Supplies 1 each 03/07/23 06:00 Iv Access IV 04/05/23 23:59 DIRECTED WM Sodium Chloride 0 ml 03/07/23 06:00 Normal Saline Flush 10 Ml Syr IV 04/05/23 23:59 PRN PRN Sodium Chloride 0 ml 03/07/23 06:00 Normal Saline 10 Ml Vial IJ 04/05/23 23:59 DIRECTED PRN Sterile Water 0 ml 03/07/23 06:00 Water,Injection,Sterile 10 Ml Vial IJ 04/05/23 23:59 DIRECTED PRN PFSH Active Problems Active Problems: Problem Status Onset Code Kidney stones N20.0 Family history of polyps in the colon Z83.71 Screening for colon cancer Z12.11 Sterilization consult Z30.09 Achilles bursitis M76.60 Amenorrhea N91.2 Z34.90 Fatigue R53.83 Hepatosplenomegaly R16.2 Abdominal pain R10.9 Back pain M54.9 Foot pain M79.673 Annual physical exam Z00.00 Bilateral kidney stones 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 Hypertension I10 Diabetes mellitus E11.9 Ocular rosacea Fatigue 12/22/12 R53.83 Breast cyst Annual physical exam 01/28/18 Z00.00 Hypermobility syndrome M35.7 Increased BMI R63.8 Lumbago of lumbar region with sciatica M54.40 PCOS (polycystic ovarian syndrome) 10/08/17 E28.2 Medical History Medical History Acne (09/17/16) Chapped lips Chest pain Cystitis Disorder of gallbladder (05/15/12) Dysfunctional uterine bleeding Elevated blood pressure reading Female infertility Hydronephrosis Infection due to Leah albicans (11/09/14) Mouth ulceration (04/02/14) Pain of left calf (01/21/17) PCOS (polycystic ovarian syndrome) Staphylococcus infection (08/13/16) Stomatitis Stomatitis (05/05/14) Surgical History Surgical History Appendectomy (~1999) Biopsy, Soft Tissue (10/18/17) skin of scalp - follicular cyst excision sebaceous cyst on scalp x2 (03/06/18) History of appendectomy History of cholecystectomy History of umbilical hernia repair (04/27/16) Kidney Stone Extraction 06/07/16;DR. GARCIA Repair of umbilical hernia (04/27/16) Tobacco Smoking/Tobacco Use Status: Never Passive smoking exposure: No Second hand exposure: No Alcohol Alcohol Intake: current Alcohol intake frequency: a few times a month Alcohol type: wine Substance Use Substance use: Never Substance use type: does not use Vital Signs and Lab Results Vital Signs Most Recent Vital Signs in EMR: Most Recent Vital Signs Temp Pulse Resp BP Pulse Ox 36.5 C 83 16 151/98 H 98 03/07/23 06:27 03/07/23 06:27 03/07/23 06:27 03/07/23 06:27 03/07/23 06:27 Point of Care Results Point of Care Results: POC- Test(urine) Negative 03/07/23 06:34 Lab Results Blood Type / Crossmatch: No Data to Display Complete Blood Count: No Data to Display Complete Metabolic Panel: No Data to Display Liver Function Panel: No Data to Display Coagulation Panel: No Data to Display Cardiac Panel: No Data to Display Arterial Blood Gas: No Data to Display Venous Blood Gas: No Data to Display Pancreas Panel: 2 No Data to Display Thyroid Panel: No Data to Display Infectious Disease: No Data to Display Blood Cultures: No Data to Display Toxicology Panel: No Data to Display Panel: No Data to Display Imaging and Studies Imaging and Studies Study information below may be from another EMR and interpreted by another provider. Please see original notes in EMR for more complete details. Stress Test Summary: Date of study: 10/27/2018 *PATIENT PRESENTATION* Height: 180.3cm (71in) Blood Pressure: Weight: 99.5kg (219lb) BSA: 2.26m^2 Referring physician: Katelynn Michael Ordering physician: Katelynn Michael Impressions: - Normal study after maximal exercise. - Pt with typical CP with exertio Echocardiogram Summary: Patient Name: HALLIE VICK #: [id number]: DI Ordering Provider: Katelynn Michael M.D., DCAccount #: [id number]: [facility] Primary Care Provider: Katelynn Michael M.D., DCDate of Exam: 06/14/20ex: F Admission Date: 06/14/20 : 1980 Age: 39 Exam(s) a US:US echocardiogram APPROVED REPORT EXAM: Comprehensive 2D, Doppler, and color-flow Echocardiogram Patient Location: Out-Patient Clinical Audiologist: Katia Noguera RDCS (AE) Indications: Marfanoid Habitus Other Information Study Quality: Adequate Conclusion Normal left ventricular wall thickness, chamber size, and systolic function. Estimated ejection fraction is 60%. There are no segmental wall motion ab normalities Normal right ventricular size and systolic function Both atria are normal in size The aortic valve is structurally normal, trileaflet, without stenosis or regurgitation The mitral valve is structurally normal. There is no mitral valve prolapse. Trace mitral regurgitation The tricuspid valve is structurally normal with trace regurgitation. Normal estimated right ventricular systolic pressure The pulmonic valve is structurally normal with trace physiologic regurgitation Borderline dilated ascending aorta, 3.23 cm Anesthesia Assessment and Plan Anesthesia History Personal History: PONV Family History: No Family History of Anesthesia Complications Exercise Tolerance Exercise Tolerance: Metabolic Equivalents>4 Pertinent Negatives Pertinent Negatives: No Symptoms of GERD, No Major Cardiovascular Symptoms or Complaints, No Major Pulmonary Symptoms or Complaints and No History of CVA/TIA Cardiac & Pulmonary Exam Cardiac Exam: Normal S1/S2 Heart Sounds Pulmonary Exam: Clear Bilateral Breath Sounds Implantable Cardiac Device Does patient have a Pacemaker or an ICD?: No Airway Exam Known Difficult Airway: No Mallampati Class: 3 Mouth Opening: Normal (> 3cm) Thyromental Distance: Greater than 3 cm Neck Range of Motion: Full ROM Neck Circumference: Normal Teeth Condition: Normal Dentition ASA Classification ASA Score: ASA 2 Emergency Case?: No NPO Status NPO Status: NPO Clears >2 hours, Solids >8 hours Status Status: Negative HCG Anesthesia Plan Resuscitation Status: Full Code Anesthesia Technique: General Anesthesia Airway Planned: LMA Monitors Used: Standard Monitors
[2023-03-07] MEDS: ceFAZolin 2 GM/50 ML BAG IVPB (07:38)
[2023-03-07] MEDS: Omnipaque 300 MG/ML 50 ML BTL (08:53)
--- NOTE | 2023-03-07 08:55 | DI.RAD_ITS ---
Exam(s) XR RETROGRADE IN OR EXAM: XR RETROGRADE IN OR CLINICAL HISTORY: cystoscopy/laser. TECHNIQUE: 2D digital imaging was performed. COMPARISON: No exams were available for comparison FINDINGS: Possibly provided during urologic procedure. Refer to procedure report for details. Total fluoroscopy time 1 minutes 15 seconds IMPRESSION: Radiation exposure index/cumulative dose: frank Medrano= 38.022mGy DATA REPOSITORY: RADIATION DOSE DELIVERED:
--- NOTE | 2023-03-07 08:59 | W.PM.OP ---
Date of service: 03/07/23 Time of Service: 08:59 Operative Note Operative Note DATE OF PROCEDURE: 03/07/23 PRE-OP DIAGNOSIS: Right kidney stones POST-OP DIAGNOSIS: same PROCEDURE: cystoscopy, right retrograde pyelogram, right ureteroscopy with holium laser lithotripsy, stone extractions, insert right ureteral stent SURGEON: Sridhar Garica ANESTHESIA TYPE: Local By Surgeon and General LMA/ETT Refer to Anesthesia Record ESTIMATED BLOOD LOSS: 20 PATHOLOGY: other (stones for chemical anaysis) COMPLICATIONS: None Patient was transported to: PACU Patient's condition: stable Implants: 4.8 Indonesian by 22 to 30 cm ureteral stent Indications: This is a 42-year-old woman who has a history of bilateral calcium oxalate monohydrate stones. She recently underwent cystoscopy with holmium laser lithotripsy and stone extractions of her left-sided stones. We required a staged procedure for the left side. She presents now for a ureteroscopy to address her right sided stones. Findings: Multiple right-sided kidney stones. Procedure Description: The patient was given preoperative IV antibiotics and brought to the operating room on 03/07/2023. After successful induction of general anesthesia, she was placed in the dorsal lithotomy position. Her genitalia was prepped and draped. 2% Xylocaine jelly was instilled into the urethra to act as a local anesthetic. A 22 Indonesian rigid cystoscope was passed through the urethra into the bladder. The bladder was inspected with a 30 degree lens. Both ureteral orifices appeared normal with no blood coming from either side. The right orifice was cannulated with a 5 Indonesian access catheter and a retrograde film was obtained by injecting Omnipaque through the access catheter under fluoroscopic guidance. In this manner, we were able to outline the calyces. A Glidewire was then advanced through the lumen of the catheter and the catheter was removed leaving the wire in place. A dual-lumen catheter was advanced over the wire and a second wire was positioned. We chose one of the wires as a working wire and the other as a safety wire. We then removed the dual-lumen catheter and passed a ureteral access sheath over the working wire leaving the safety wire in place. The flexible ureteroscope was passed through the lumen of the ureteral access sheath and each of the calyces were inspected. Multiple stones were identified and each stone was grasped in a 0 tip stone basket and removed. Each stone was sent to pathology for chemical analysis. In one of the upper pole calyces, a stone was visualized but I was unable to grasp the stone. We then treated that particular stone with a holmium laser. We utilized a 272 ?m holmium laser fiber and a power setting of 0.8 with a rate of 8. The stone fragmented quite nicely. Because of the associated trauma from the procedure, we elected to place a ureteral stent. We chose a 4.8 Indonesian variable length stent and advanced it over the safety wire. The proximal end of the stent was curled in the renal pelvis and the distal end was curled within the bladder. The positioning of the stent was confirmed both fluoroscopically and cystoscopically. The patient tolerated the procedure well with no complications.
--- NOTE | 2023-03-07 09:00 | W.PM.DSUDISC ---
Date of service: 03/07/23 Time of Service: 09:01 Discharge Plan Disposition Patient Disposition: Home Condition: Stable Discharge Details Reason For Visit: ureteroscopy Attending Provider: Sridhar Garcia Primary Care Provider: Katelynn Michael Home Meds and New Rx's Prescriptions: No Action hydrochlorothiazide 25 mg tablet 25 mg PO QAM Qty: 90 4RF metoprolol succinate 50 mg tablet extended release 24 hr 50 mg PO DAILY Qty: 90 4RF fluticasone propionate 50 mcg/actuation spray,suspension 1 spray NS BID PRN (Reason: allergy symptoms) Qty: 47.4 4RF loratadine 10 mg tablet 10 mg PO DAILY PRN (Reason: allergy symptoms) Qty: 90 3RF multivitamin Tablet 1 tab PO DAILY Discharge Instructions Additional Instructions: no need to strain urine followup @ 5 days for stent removal; - tell my office there is string on end of stent followup appt 6 to 8 weeks with renal US to be done in office Activity:: Activity as Tolerated Shower/Bathe:: 24 hours Diet:: As Tolerated Discharge Orders Discharge Orders: Discharge Order (Routine); Ordered 03/07/23 Ordered By: Sridhar Garcia DS: Diagnosis Discharge Diagnosis (1) Kidney stones: Status: Chronic
[2023-03-07] MEDS: traMADol 50 MG TAB PO (10:21)
[2023-03-07] MEDS: Phenazopyridine 200 MG TAB PO (10:21)
--- NOTE | 2023-03-07 11:24 | W.ANESPOSTOP ---
Postoperative Evaluation Date, Time and Location Date Performed: 03/07/23 Time Performed: 10:35 Patient Location: Day Surgery Unit Vital Signs Most Recent Imported Vital Signs: Most Recent Vital Signs Temp Pulse Resp BP Pulse Ox 36.5 C 69 18 138/76 96 03/07/23 10:30 03/07/23 10:30 03/07/23 10:30 03/07/23 10:30 03/07/23 10:30 Pain Score Most Recent Pain Score: Most Recent Pain Score Pain Level 3 03/07/23 10:30 Assessment Mental Status: Awake (Alert & Oriented to Patient Baseline) Airway and Respiratory Function: Patent airway with normal (patient baseline) respiratory exam Cardiovascular Function: Hemodynamically Stable Hydration Status: Adequately Hydrated Nausea & Vomiting: No Nausea or Vomiting Pain: Pain is tolerable per patient Peripheral Nerve Block: Patient did not receive a nerve block
[2023-03-13 13:00] LABS: Source: Left Kidney
== END 2023-03-07 11:00 | disposition home or self-care (01) ==
PROVIDERS: PCP Family Medicine; Visit Provider Urology
PROC: (CPT 52356; principal; 2023-03-07 07:30)
DX: N20.0 Calculus of kidney (principal); E11.9 Type 2 diabetes mellitus without complications; I10 Essential (primary) hypertension; E28.2 Polycystic ovarian syndrome
CPT/HCPCS: 52356; 74420; 82365; J0690; J1100; J1885; J2001; J2405; Q9967

== ENCOUNTER 2023-03-13 08:08 | Outpatient (REF) | payer BC, SELFPAY | END 2023-03-13 08:09 | disposition home or self-care (01) | LOC: LBN 08:08 | PROVIDERS: PCP Family Medicine; Visit Provider Nurse Practitioner Gerontology | DX: R30.0 Dysuria (principal) | CPT/HCPCS: 87086 ==

== ENCOUNTER 2023-03-29 01:49 | Outpatient (CLI) | payer BC, SELFPAY ==
[2023-03-29 08:16] LABS: Hemoglobin A1C 6.9 % (<5.7)
[2023-03-29 08:33] LABS: ALT 52 U/L (14-59); AST 47 U/L (15-37); Albumin 3.7 g/dL (3.4-5.0); Alkaline Phosphatase 66 U/L (46-116); Anion Gap 12.1 mmol/L (3-11); BUN 16 mg/dL (7-18); Bilirubin, Total 1.7 mg/dL (0.2-1.0); CO2 23.9 mmol/L (21.0-32.0); Calcium 8.9 mg/dL (8.5-10.1); Calculated LDL 82 mg/dL (<100); Chloride 100 mmol/L (98-107); Cholesterol 164 mg/dL (<200); Estimated GFR 71.69 (mL/min/1.73m2); Glucose 171 mg/dL (74-106); HDL Cholesterol 37 mg/dL (40-60); Potassium 3.8 mmol/L (3.5-5.1); Sodium 136 mmol/L (136-145); Total Protein 7.3 g/dL (6.4-8.2); Triglyceride 228 mg/dL (<150)
[2023-03-29 08:34] LABS: COMMENT (LAB VIEW ONLY) 112.09 mg/dL; Microalb ug/mg Crea 16.1 ug/mg Cr
== END 2023-03-29 01:50 | disposition home or self-care (01) ==
LOC: LBO 01:50
PROVIDERS: PCP Family Medicine; Visit Provider Family Medicine
DX: E11.9 Type 2 diabetes mellitus without complications (principal); Z00.00 Encounter for general adult medical examination without abnormal findings
CPT/HCPCS: 36415; 80053; 80061; 82043; 82570; 83036

== ENCOUNTER 2024-07-02 03:28 | Outpatient (CLI) | payer BC, SELFPAY ==
[2024-07-02 08:59] LABS: Hemoglobin A1C 5.5 % (<5.7)
[2024-07-02 09:01] LABS: ALT 24 U/L (14-59); AST 24 U/L (15-37); Albumin 3.9 g/dL (3.4-5.0); Alkaline Phosphatase 72 U/L (46-116); Anion Gap 11.7 mmol/L (3-11); BUN 17 mg/dL (7-18); Bilirubin, Total 1.49 mg/dL (0.2-1.0); CO2 25.3 mmol/L (21.0-32.0); CREATININE 1.1 mg/dL (0.55-1.02); Calcium 9.6 mg/dL (8.5-10.1); Calculated LDL 103 mg/dL (<100); Chloride 104 mmol/L (98-107); Cholesterol 186 mg/dL (<200); Estimated GFR 63.15 (mL/min/1.73m2); Glucose 108 mg/dL (74-106); HDL Cholesterol 39 mg/dL (40-60); Potassium 4.3 mmol/L (3.5-5.1); Sodium 141 mmol/L (136-145); Total Protein 7.5 g/dL (6.4-8.2); Triglyceride 220 mg/dL (<150)
== END 2024-07-02 03:29 | disposition home or self-care (01) ==
LOC: LBO 03:28
PROVIDERS: PCP Family Medicine; Visit Provider Family Medicine
DX: E11.9 Type 2 diabetes mellitus without complications (principal); Z00.00 Encounter for general adult medical examination without abnormal findings; I10 Essential (primary) hypertension
CPT/HCPCS: 36415; 80053; 80061; 83036

== ENCOUNTER 2024-07-17 01:51 | Outpatient (CLI) | payer BC, SELFPAY ==
[2024-07-17 10:24] LABS: TSH (W/Ref FT4) 1.27 uIU/mL (0.36-3.74)
[2024-07-17 18:08] LABS: FSH 6.6 mIU/mL (See Note); LH 9.3 mIU/mL (See Note)
== END 2024-07-17 01:52 | disposition home or self-care (01) ==
PROVIDERS: PCP Family Medicine; Visit Provider Family Medicine
DX: E03.9 Hypothyroidism, unspecified (principal); Z00.00 Encounter for general adult medical examination without abnormal findings
CPT/HCPCS: 36415; 83001; 83002; 84443

== ENCOUNTER 2024-07-21 01:11 | Outpatient (CLI) | payer BC, SELFPAY ==
--- NOTE | 2024-07-21 09:45 | DI.MAMMO_ITS ---
Exam(s) MAMMO SCREENING EXAM: MAMMO SCREENING CLINICAL HISTORY: screening,Z12.39. TECHNIQUE: Bilateral full field digital CC and MLO mammographic images were obtained with 3D tomosyn thesis and utilizing computer aided detection (CAD). COMPARISON: Prior mammograms were reviewed. FINDINGS: No new mammographic findings in the right breast. In the left breast on the CC view there is a new asymmetric density-possible nodule located inferiorl y measuring 6 x 5 mm and located 6 cm in from the nipple, slightly medial of center on the CC view. Spot compression view recommended. There are scattered benign-appearing microcalcifications in both breasts again noted. There are no n ew malignant-appearing microcalcification groups in either breast. There is no significant architectural distortion nor skin thickening-retraction. IMPRESSION: 1. No radiographic evidence of malignancy in the right breast. 2. Asymmetric density-possible 6 x 5 mm inferiorly located left breast nodule. Spot compression view and ultrasound recommended. BI-RADS Category 0 - Incomplete: Need additional imaging evaluation Breast Density - Category B - Scattered areas of fibroglandular density Breast density Category C or D implies that the patient has dense breast tissue. Dense breast tissue can make it harder to find cancer on a mammogram. Dense breast tissue is also associated with an incr eased risk of breast cancer. This information about the result of the mammogram report was provided to the patient to raise their awareness. Use this report when you speak with the patient about their risks for breast cancer, which includes their family history. At that time, you may recommend additional screening tests (Ultrasoun d or MRI) as these tests may add significant information. A negative radiographic report should not delay biopsy if a dominant or clinically suspicious mass is present. Up to ten percent of cancers are not identified on mammography. A negative report may reinforce clinical impression. Adenosis and dense breasts may obscure an underlying neoplasm. False positive reports average 6 to 10%. Patient will receive a letter notifying them of these results.
== END 2024-07-21 01:31 ==
LOC: DI 01:11
PROVIDERS: PCP Family Medicine; Visit Provider Family Medicine
DX: Z12.31 Encounter for screening mammogram for malignant neoplasm of breast (principal); R92.323 Mammographic fibroglandular density, bilateral breasts
CPT/HCPCS: 77063; 77067

== ENCOUNTER 2024-07-24 00:27 | Outpatient (CLI) | payer BC, SELFPAY ==
--- NOTE | 2024-07-24 | DI.MAMMO_ITS ---
Exam(s) MAMMO SCREEN CALL BACK UNI US BREAST LT COMPLETE EXAM: MAMMO SCREEN CALL BACK UNI CLINICAL HISTORY: F/U MAMMO, R92.8,ASYMMETRIC DENSITY LT, ? NODULE. TECHNIQUE: Unilateral left breast spot mammographic images obtained with 3D tomosynthesisand [employer] computer aided detection (CAD). . Complete left breast Ultrasound was also performed, including all 4 quadrants, the retroareolar regio n, and the ipsilateral axilla. COMPARISON: Prior mammograms were reviewed. This additional imaging was performed due to findings described on the recent screening mammogram of 07/21/2024. FINDINGS: DIAGNOSTIC MAMMOGRAM: Additional mammographic views performed todayare equivocal. We proceeded with ultrasound COMPLETE LEFT BREAST ULTRASOUND: Ultrasound performed today reveals no evidence of solid or significant cystic lesions all 4 quadrants . This finding may therefore be a benign intramammary lymph node.. Scanning of the ipsilateral axilla reveals no significant adenopathy. IMPRESSION: 1. As above. Probable benign findings. Appropriate follow-up as discussed by myself with the patient today is repeat left breast mammogram i n 6 months, with earlier imaging if a self detected breast change is noted. The patient was informed of these findings and recommendations myself prior to leaving the department today. BI-RADS Category 3 - 6 month - Probably Benign Finding: Recommend follow-up mammography in 6 months Breast Density - Category B - Scattered areas of fibroglandular density Breast density Category C or D implies that the patient has dense breast tissue. Dense breast tissue can make it harder to find cancer on a mammogram. Dense breast tissue is also associated with an incr eased risk of breast cancer. This information about the result of the mammogram report was provided to the patient to raise their awareness. Use this report when you speak with the patient about their risks for breast cancer, which includes their family history. At that time, you may recommend additional screening tests (Ultrasoun d or MRI) as these tests may add significant information. A negative radiographic report should not delay biopsy if a dominant or clinically suspicious mass is present. Up to ten percent of cancers are not identified on mammography. A negative report may reinforce clinical impression. Adenosis and dense breasts may obscure an underlying neoplasm. False positive reports average 6 to 10%. Patient will receive a letter notifying them of these results.
== END 2024-07-24 00:47 ==
LOC: DI 00:27
PROVIDERS: PCP Family Medicine; Visit Provider Family Medicine
DX: R92.8 Other abnormal and inconclusive findings on diagnostic imaging of breast (principal); Z12.31 Encounter for screening mammogram for malignant neoplasm of breast; D24.2 Benign neoplasm of left breast; R92.323 Mammographic fibroglandular density, bilateral breasts
CPT/HCPCS: 76642; 77063; 77067

== ENCOUNTER 2025-01-28 01:09 | Outpatient (CLI) | payer BC, SELFPAY ==
--- NOTE | 2025-01-28 07:45 | DI.MAMMO_ITS ---
Exam(s) MAMMO DIAGNOSTIC UNI EXAM: MAMMO DIAGNOSTIC UNI-LEFT CLINICAL HISTORY: F/U ABNL MAMMO LT BREAST,6 MO F/U,R92.8,Z09. TECHNIQUE: Unilateral LEFT BREAST CC AND MLO AND SPOT mammographic images were obtained with 3D tomosynthesis technique and utilizing computer aided detection (CAD). COMPARISON: Prior mammograms were reviewed, the most recent being July 2024.. Ultrasound July 2024 was also reviewed. FINDINGS: The previously described left breast mammographic finding remains stable. It was negative on ultrasound examination at that time. There are no malignant-appearing microcalcification groups in this region nor elsewhere in the left breast. No new architectural distortion or skin thickening-traction. IMPRESSION: Stable benign-appearing finding. No radiographic evidence of malignancy Appropriate follow-up is to keep this patient on her yearly mammogram schedule, this implying that her next bilateral mammogram would be in July 2025, with earlier imaging if a self detected breast change is noted.. The patient was informed of the findings and follow-up recommendations by myself prior to leaving the department today. BI-RADS Category 2 - Benign Findings Breast Density - Category B - There are scattered areas of fibroglandular density. Breast density Category C or D implies that the patient has dense breast tissue. Dense breast tissue can make it harder to find cancer on a mammogram. Dense breast tissue is also associated with an increased risk of breast cancer. This information about the result of the mammogram report was provided to the patient to raise their awareness. Use this report when you speak with the patient about their risks for breast cancer, which includes their family history. At that time, you may recommend additional screening tests (Ultrasound or MRI) as these tests may add significant information. A negative radiographic report should not delay biopsy if a dominant or clinically suspicious mass is present. Up to ten percent of cancers are not identified on mammography. A negative report may reinforce clinical impression. Adenosis and dense breasts may obscure an underlying neoplasm. False positive reports average 6 to 10%. Patient will receive a letter notifying them of these results.
== END 2025-01-28 01:29 ==
LOC: DI 01:09
PROVIDERS: PCP Family Medicine; Visit Provider Family Medicine
DX: R92.8 Other abnormal and inconclusive findings on diagnostic imaging of breast (principal); Z09 Encounter for follow-up examination after completed treatment for conditions other than malignant neoplasm
CPT/HCPCS: 77061; 77065; G0279

== ENCOUNTER 2025-03-26 08:23 | Day surgery (SDC) | payer BC, SELFPAY ==
--- NOTE | 2025-03-25 18:14 | ANES.PREOP_ITS ---
General Info Date of Service Date Performed: 03/26/25 Height: 5 ft 10 in Weight: 113.852 kg Body Mass Index (BMI): 36.0 Surgical Procedure: Operation Date: 03/26/25 09:50 Proposed Procedure Side Surgeon tatiana Clemente MD Meds Allergies and Home Medications Allergies Allergy/AdvReac Type Severity Reaction Status Date / Time metformin Allergy Severe Per pt Verified 03/26/25 08:32 complete swelling from head to toe rash lisinopril AdvReac Intermediate Tingly lips Verified 03/26/25 08:32 Home Medication ?Medication ?Instructions ?Recorded multivitamin 1 tab PO DAILY 11/09/22 loratadine 10 mg tablet 10 mg PO DAILY PRN allergy 0 04/17/23 symptoms #90 tabs hydrochlorothiazide 25 mg tablet 25 mg PO QAM #90 tabs 04/27/24 metoprolol succinate 50 mg 75 mg (1.5 x 50 mg) PO HERLINDA Y #135 04/27/24 tablet,extended release 24 hr tabs fluticasone propionate 50 1 spray NS BID PRN allergy 0 01/26/25 mcg/actuation nasal symptoms #47.4 mL spray,suspension Wegovy 0.5 mg/0.5 mL subcutaneous 0.5 mg (0.5 mL) subc ut QWEEK #6 mL 03/13/25 pen injector (semaglutide (weight loss)) Held on 03/26/25. Instructions: Pt Stopped/Never Started Current Visit Medications: Current Medications Generic Name Dose Route Start Last Admin Trade Name Freq PRN Reason Stop Dose Admin Ringer's Solution 1,000 mls @ 80 mls/hr 03/26/25 06:00 IV 03/26/25 23:59 INFUSION WM IV Miscellaneous Supplies 1 each 03/26/25 06:00 Iv Access IV 03/26/25 23:59 DIRECTED WM Sodium Chloride 0 ml 03/26/25 06:00 Normal Saline Flush 10 Ml Syr IV 03/26/25 23:59 PRN PRN Sodium Chloride 0 ml 03/26/25 06:00 Normal Saline 10 Ml Vial IJ 03/26/25 23:59 DIRECTED PRN Sterile Water 0 ml 03/26/25 06:00 Water,Injection,Sterile 10 Ml Vial IJ 03/26/25 23:59 DIRECTED PRN PFSH Active Problems Active Problems: Problem Status Onset Code Abnormality of left breast on screening mammogram Acute R92.8 Encounter for screening colonoscopy Acute Z12.11 Kidney stones Chronic N20.0 Family history of polyps in the colon Acute Z83.71 Screening for colon cancer Acute Z12.11 Sterilization consult Acute Z30.09 Achilles bursitis Acute M76.60 Amenorrhea Acute N91.2 Acute Z34.90 Fatigue Acute R53.83 Hepatosplenomegaly Acute R16.2 Back pain Acute M54.9 Abdominal pain Acute R10.9 Foot pain Acute M79.673 Annual physical exam Acute Z00.00 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 states she was tested for this and it was inconclusive, she stated she only got tested for this because her children were having issues with their eyes and it required genetic testing. PCOS (polycystic ovarian syndrome) Chest pain Disorder of gallbladder (05/15/12) Dysfunctional uterine bleeding Female infertility Infection due to Leah albicans (11/09/14) Mouth ulceration (04/02/14) Pain of left calf (01/21/17) Staphylococcus infection (08/13/16) Stomatitis (05/05/14) Elevated blood pressure reading Chapped lips Acne (09/17/16) Cystitis Stomatitis Hydronephrosis Surgical History Surgical History History of cholecystectomy History of appendectomy History of umbilical hernia repair (04/27/16) excision sebaceous cyst on scalp x2 (03/06/18) Kidney Stone Extraction 06/07/16;DR. SANABRIA Repair of umbilical hernia (04/27/16) Biopsy, Soft Tissue (10/18/17) skin of scalp - follicular cyst Appendectomy (~1999) Tobacco Smoking/Tobacco Use Status: Never Passive smoking exposure: No Second hand exposure: No Alcohol Alcohol Intake: current Alcohol intake frequency: a few times a month Alcohol type: wine and hard liquor Substance Use Substance use: Never Substance use type: does not use Vital Signs and Lab Results Vital Signs Most Recent Vital Signs in EMR: Temp Pulse Resp BP Pulse Ox 36.5 C 80 14 130/86 98 03/26/25 08:35 03/26/25 08:35 03/26/25 08:35 03/26/25 08:35 03/26/25 08:35 Imaging and Studies Imaging and Studies Study information below may be from another EMR and interpreted by another provider. Please see original notes in EMR for more complete details. Stress Test Summary: Date of study: 10/27/2018 *PATIENT PRESENTATION* Height: 180.3cm (71in) Blood Pressure: Weight: 99.5kg (219lb) BSA: 2.26m^2 Referring physician: Katelynn Michael Ordering physician: Katelynn Michael Impressions: - Normal study after maximal exercise. - Pt with typical CP with exertio Echocardiogram Summary: Patient Name: HALLIE VICK #: [id number]: BENJAMIN Ordering Provider: Katelynn Michael M.D., DCAccount #: [id number]: DONTE I Primary Care Provider: Katelynn Michael M.D., DCDate of Exam: 06/14/20ex: F Admission Date: 06/14/20 : 1980 Age: 39 Exam(s) a US:US echocardiogram APPROVED REPORT EXAM: Comprehensive 2D, Doppler, and color-flow Echocardiogram Patient Location: [facility] Supervisor: Katia Noguera RDCS (AE) Indications: Marfanoid Habitus Other Information Study Quality: Adequate Conclusion Normal left ventricular wall thickness, chamber size, and systolic function. Estimated ejection fraction is 60%. There are no segmental wall motion abnormalities Normal right ventricular size and systolic function Both atria are normal in size The aortic valve is structurally normal, trileaflet, without stenosis or regurgitation The mitral valve is structurally normal. There is no mitral valve prolapse. Trace mitral regurgitation The tricuspid valve is structurally normal with trace regurgitation. Normal estimated right ventricular systolic pressure The pulmonic valve is structurally normal with trace physiologic regurgitation Borderline dilated ascending aorta, 3.23 cm Anesthesia Assessment and Plan Anesthesia History Personal History: PONV Family History: No Family History of Anesthesia Complications Exercise Tolerance Exercise Tolerance: Metabolic Equivalents>4 Cardiac & Pulmonary Exam Cardiac Exam: Normal S1/S2 Heart Sounds Pulmonary Exam: Clear Bilateral Breath Sounds Implantable Cardiac Device Does patient have a Pacemaker or an ICD?: No Airway Exam Known Difficult Airway: No Mallampati Class: 3 Mouth Opening: Normal (> 3cm) Thyromental Distance: Greater than 3 cm Neck Range of Motion: Full ROM Neck Circumference: Normal Teeth Condition: Normal Dentition ASA Classification ASA Score: ASA 2 Emergency Case?: No NPO Status NPO Status: NPO Clears >2 hours, Solids >8 hours Status Status: Negative HCG Anesthesia Plan Resuscitation Status: Full Code Anesthesia Technique: General Anesthesia Airway Planned: Natural Airway Monitors Used: Standard Monitors Preoperative Comments:: 44 yo for colo. Sig PMHx: HTN (HCTZ, metoprolol), DM (semaglutide- has not yet started), hypermobility/marfan habitus, PCOS . echo: LVEF 60%, Stress: wnl. Previous Anes: - cysto x 3, LMA 4, no issues. - hernia, Mac 4 grade 3 --> glide grade 1, easy mask.
[2025-03-26 08:35] VITALS: BP 130/86; PULSE 80; RESP 14; TEMP 36.5; O2SAT 98
--- NOTE | 2025-03-26 08:45 | COLE_ITS ---
Date of service: 03/26/25 Time of Service: 08:45 Colonoscopy Report Procedure Description: PROCEDURES PERFORMED: 1. Colonoscopy PREOPERATIVE DIAGNOSIS: Screening colonoscopy POSTOPERATIVE DIAGNOSIS: Normal colonoscopy SURGEON: Brianne Clemente MD INDICATION FOR PROCEDURE: the patient is a 44-year-old woman due for her first screening colonoscopy. She has no symptoms of concern. She has no family history of colon cancer but thinks there may be a family history of colon polyps in her father. She is unsure kind or type. FINDINGS: Normal terminal ileum. There were no polyps anywhere. No obvious diverticular disease. No significant or obvious hemorrhoid disease. SURVEILLANCE interval/FOLLOW-UP: 10 years SPECIMENS: None EBL: Minimal COMPLICATIONS: None QUALITY of prep: Excellent Procedure in detail: The patient gave written consent and was in agreement with the indications, the potential risks as well as the benefits of the procedure. They were taken to the endoscopy suite and laid in the left lateral decubitus position. A timeout was performed and anesthesia was administered which was tolerated well. I started the procedure. Digital rectal and visual examination was performed and grossly within normal limits. A well-lubricated flexible colonoscope was then introduced and passed without any notable difficulty all the way to the cecum identified by the ileocecal valve and the appendiceal orifice. The terminal ileum was briefly int ubated and looked normal. The scope was then slowly withdrawn with the above- noted findings. The patient tolerated the procedure well and was taken to the PACU in hemodynamically stable condition.
--- NOTE | 2025-03-26 08:45 | W.PM.DSUDISC ---
Date of service: 03/26/25 Discharge Plan Disposition Patient Disposition: Home Condition: Good Discharge Details Attending Provider: Thierno Clemente Primary Care Provider: Katelynn Michael Home Meds and New Rx's Prescriptions: No Action fluticasone propionate 50 mcg/actuation spray,suspension 1 spray NS BID PRN (Reason: allergy symptoms) Qty: 47.4 4RF loratadine 10 mg tablet 10 mg PO DAILY PRN (Reason: allergy symptoms) Qty: 90 3RF hydrochlorothiazide 25 mg tablet 25 mg PO QAM Qty: 90 4RF metoprolol succinate 50 mg tablet extended release 24 hr 75 mg PO DAILY Qty: 135 4RF Wegovy 0.5 mg/0.5 mL pen injector 0.5 mg subcut QWEEK Qty: 6 4RF Patient Comments: Pt. has not started this medication yet, was on zepbound but had stopped it 3 weeks prior to today 03/25/25 multivitamin Tablet 1 tab PO DAILY Discharge Instructions Additional Instructions: FINDINGS: No cancer. No polyps. No disease processes. Your colon and rectum appear healthy and normal. Repeat a colonoscopy in 10 years. Stand Alone Forms: Anesthesia Discharge Inst., Colonoscopy Post Instructions, Adelso Alexis ([facility]) Activity:: Activity as Tolerated Diet:: As Tolerated Discharge Orders Discharge Orders: Discharge Order (Routine); Ordered 03/26/25 Ordered By: Thierno Clemente
[2025-03-26 08:56] VITALS: BMI 36.0
[2025-03-26] MEDS: Lactated Ringers 1,000 ML 80 ML IV (09:03)
[2025-03-26 10:15] VITALS: BP 116/65; PULSE 84; RESP 14; TEMP 36.3; O2SAT 96
--- NOTE | 2025-03-26 10:23 | W.ANESPOSTOP ---
Postoperative Evaluation Date, Time and Location Date Performed: 03/26/25 Time Performed: 10:23 Patient Location: Day Surgery Unit Vital Signs Most Recent Imported Vital Signs: Most Recent Vital Signs Temp Pulse Resp BP Pulse Ox 36.3 C L 84 14 116/65 96 03/26/25 10:15 03/26/25 10:15 03/26/25 10:15 03/26/25 10:15 03/26/25 10:15 Pain Score Most Recent Pain Score: Most Recent Pain Score Pain Level 0 03/26/25 10:15 Assessment Mental Status: Awake (Alert & Oriented to Patient Baseline) Airway and Respiratory Function: Patent airway with normal (patient baseline) respiratory exam Cardiovascular Function: Hemodynamically Stable Hydration Status: Adequately Hydrated Nausea & Vomiting: No Nausea or Vomiting Pain: Pt. Denies Any Pain Peripheral Nerve Block: Patient did not receive a nerve block
[2025-03-26 10:38] VITALS: BP 118/69; PULSE 78; RESP 16; TEMP 36.6; O2SAT 96
== END 2025-03-26 10:53 | disposition home or self-care (01) ==
LOC: SUR 08:23
PROVIDERS: PCP Family Medicine; Visit Provider Student in an Organized Health Care Education/Training Program
PROC: 0DJD8ZZ Inspection of Lower Intestinal Tract, Via Natural or Artificial Opening Endoscopic (ICD-10-PCS; CPT 45378; principal; 2025-03-26 09:45)
DX: Z12.11 Encounter for screening for malignant neoplasm of colon (principal)
CPT/HCPCS: 45378; J2405; J2704

== ENCOUNTER 2025-04-23 15:20 | Outpatient (REF) | payer BC, SELFPAY ==
[2025-04-23 12:09] LABS: Glucose Negative (Negative)
[2025-04-23 12:18] LABS: C & S Indicated? Yes; RBC 0-2 HPF (0-2)
== END 2025-04-23 15:21 | disposition home or self-care (01) ==
LOC: LBN 15:20
PROVIDERS: Urology; PCP Family Medicine; Visit Provider Family Medicine
DX: R30.0 Dysuria (principal)
CPT/HCPCS: 87077; 81003; 81015; 87086; 87186

== ENCOUNTER 2025-05-20 03:37 | Outpatient (CLI) | payer BC, SELFPAY ==
[2025-05-20 07:41] LABS: Glucose Negative (Negative)
[2025-05-20 07:54] LABS: Hemoglobin A1C 5.9 % (<5.7)
[2025-05-20 08:03] LABS: ALT 51 U/L (14-59); AST 25 U/L (15-37); Albumin 3.9 g/dL (3.4-5.0); Alkaline Phosphatase 61 U/L (46-116); Anion Gap 10.6 mmol/L (3-11); BUN 16 mg/dL (7-18); Bilirubin, Total 2.3 mg/dL (0.2-1.0); CO2 27.4 mmol/L (21.0-32.0); Calcium 9.2 mg/dL (8.5-10.1); Chloride 101 mmol/L (98-107); Cholesterol 169 mg/dL (<200); Glucose 127 mg/dL (74-106); HDL Cholesterol 31 mg/dL (>or=50); Potassium 4.0 mmol/L (3.5-5.1); Sodium 139 mmol/L (136-145); TSH (W/Ref FT4) 1.70 uIU/mL (0.36-3.74); Total Protein 7.5 g/dL (6.4-8.2)
[2025-05-20 08:03] LABS: RBC Negative HPF (0-2); WBC 0-2 HPF (0-5)
[2025-05-21 10:07] LABS: Hepatitis C Ab w Rflx HCV PCR Negative (Negative)
== END 2025-05-20 03:38 | disposition home or self-care (01) ==
LOC: LBO 03:37
PROVIDERS: Urology; PCP Family Medicine; Visit Provider Family Medicine
DX: N20.0 Calculus of kidney (principal); R30.0 Dysuria; I10 Essential (primary) hypertension; Z00.00 Encounter for general adult medical examination without abnormal findings; Z11.59 Encounter for screening for other viral diseases
CPT/HCPCS: 36415; 80053; 80061; 86803; 87077; 81003; 81015; 83036; 84443; 87086; 87186

== ENCOUNTER 2025-07-02 01:32 | Outpatient (CLI) | payer BC, SELFPAY ==
[2025-07-02 08:34] LABS: ALT 30 U/L (10-49); AST 21 U/L (<34); Albumin 4.3 g/dL (3.2-5.0); Alkaline Phosphatase 61 U/L (46-116); Anion Gap 11.9 mmol/L (3-11); BUN 15 mg/dL (9-23); Bilirubin, Direct 0.5 mg/dL (<=0.3); Bilirubin, Total 1.8 mg/dL (0.2-1.2); CO2 27.1 mmol/L (20.0-31.0); Calcium 9.3 mg/dL (8.3-10.6); Chloride 104 mmol/L (98-107); Glucose 118 mg/dL (74-106); Potassium 4.0 mmol/L (3.5-5.1); Sodium 143 mmol/L (136-145); Total Protein 6.7 g/dL (5.7-8.2)
== END 2025-07-02 01:33 | disposition home or self-care (01) ==
LOC: LBO 01:32
PROVIDERS: PCP Family Medicine; Visit Provider Family Medicine
DX: R17 Unspecified jaundice (principal); I10 Essential (primary) hypertension
CPT/HCPCS: 36415; 80053; 82248